=== PATIENT | female | born 1980 | race Caucasian/White ===

== ENCOUNTER 2020-03-14 14:32 | Outpatient (REF) | payer BC, SELFPAY | END 2020-03-14 14:33 | disposition home or self-care (01) | LOC: HO.LNP 14:32 | PROVIDERS: Visit Provider Internal Medicine | DX: Z00.01 Encounter for general adult medical examination with abnormal findings (principal); E78.1 Pure hyperglyceridemia; I10 Essential (primary) hypertension; R73.01 Impaired fasting glucose; E03.9 Hypothyroidism, unspecified | CPT/HCPCS: 88142 ==

== ENCOUNTER 2020-10-03 07:11 | Outpatient (REF) | payer BC, SELFPAY ==
[2020-10-03 09:03] LABS: Estimated Average Glucose 120 mg/dL; Hemoglobin A1c % 5.8 %
[2020-10-03 09:21] LABS: Alanine Aminotransferase 21 U/L (0-31); Anion Gap 13 (12-20); Aspartate Amino Transferase 17 U/L (5-31); Blood Urea Nitrogen 13 mg/dL (9-16); Calcium 9.2 mg/dL (8.4-10.2); Carbon Dioxide 28 mmol/L (22-29); Chloride 103 mmol/L (96-108); Cholesterol 193 mg/dL; Estimated Glomerular Filt Rate > 60; Glucose Fasting 103 mg/dL (60-99); HDL Cholesterol 36 mg/dL; LDL Cholesterol Calculated 114 mg/dl; Potassium 4.5 mmol/L (3.3-5.1); Sodium 139 mmol/L (135-145); Triglycerides 215 mg/dL
[2020-10-03 09:27] LABS: Free T4 (Free Thyroxine) 1.15 ng/dL (0.71-1.85)
== END 2020-10-03 07:12 | disposition home or self-care (01) ==
LOC: HO.LAB 07:11
PROVIDERS: PCP Internal Medicine; Visit Provider Internal Medicine
DX: Z00.01 Encounter for general adult medical examination with abnormal findings (principal); R73.01 Impaired fasting glucose; I10 Essential (primary) hypertension; E78.1 Pure hyperglyceridemia; E03.9 Hypothyroidism, unspecified
CPT/HCPCS: 36415; 80048; 80061; 83036; 84439; 84443; 84450; 84460

== ENCOUNTER 2021-02-09 16:29 | Outpatient (REF) | payer BC, SELFPAY ==
[2021-02-09 17:12] LABS: Influenza A PCR NEGATIVE (Negative); Influenza B PCR NEGATIVE (Negative); Resp Syncy Virus RNA Qual PCR NEGATIVE (Negative); SARS COV2 PCR INHOUSE NEGATIVE (Negative)
== END 2021-02-09 16:30 | disposition home or self-care (01) ==
LOC: HO.LNP 16:29
PROVIDERS: Visit Provider Physician Assistant Medical
DX: Z20.822 Contact with and (suspected) exposure to COVID-19 (principal); J06.9 Acute upper respiratory infection, unspecified
CPT/HCPCS: 0241U

== ENCOUNTER 2021-04-17 10:49 | Outpatient (REF) | payer BC, SELFPAY ==
[2021-04-17 13:05] LABS: Alanine Aminotransferase 26 U/L (0-31); Anion Gap 12 (12-20); Aspartate Amino Transferase 18 U/L (5-31); Blood Urea Nitrogen 11 mg/dL (9-16); Calcium 9.4 mg/dL (8.4-10.2); Carbon Dioxide 26 mmol/L (22-29); Chloride 106 mmol/L (96-108); Cholesterol 191 mg/dL; Estimated Glomerular Filt Rate > 60; Glucose Fasting 99 mg/dL (60-99); HDL Cholesterol 37 mg/dL; LDL Cholesterol Calculated 96 mg/dl; Sodium 140 mmol/L (135-145); Triglycerides 293 mg/dL
[2021-04-17 13:27] LABS: Free T4 (Free Thyroxine) 1.23 ng/dL (0.71-1.85); Thyroid Stimulating Hormone 1.03 uIU/mL (0.32-4.0)
== END 2021-04-17 10:50 | disposition home or self-care (01) ==
LOC: HO.HMGCLDS 10:49
PROVIDERS: PCP Internal Medicine; Visit Provider Internal Medicine
DX: E03.9 Hypothyroidism, unspecified (principal); E66.9 Obesity, unspecified; I10 Essential (primary) hypertension; E78.1 Pure hyperglyceridemia; R73.01 Impaired fasting glucose
CPT/HCPCS: 36415; 80048; 80061; 84439; 84443; 84450; 84460

== ENCOUNTER 2021-04-28 12:17 | Outpatient (REF) | payer BC, SELFPAY ==
--- NOTE | ~2021-04-28 | XR_ITS ---
EXAMINATION: XR CHEST CLINICAL INFORMATION: Cough COMPARISON: None TECHNIQUE: 2 views of the chest were obtained. FINDINGS: No significant abnormality is noted involving the heart, lungs, mediastinum, bony thorax or soft tissues. XR/XR chest 2V IMPRESSION: Unremarkable examination.
[2021-04-28 15:14] LABS: Influenza A PCR NEGATIVE (Negative); Influenza B PCR NEGATIVE (Negative); Resp Syncy Virus RNA Qual PCR POSITIVE (Negative); SARS COV2 PCR INHOUSE NEGATIVE (Negative)
== END 2021-04-28 12:18 | disposition home or self-care (01) ==
LOC: HO.HMGCX 12:17
PROVIDERS: PCP Internal Medicine; Visit Provider Physician Assistant
DX: Z20.822 Contact with and (suspected) exposure to COVID-19 (principal); R05.9 Cough, unspecified; R00.0 Tachycardia, unspecified; B34.9 Viral infection, unspecified
CPT/HCPCS: 0241U; 71046

== ENCOUNTER 2021-10-01 | Outpatient (REF) | payer BC, SELFPAY ==
[2021-10-08 12:46] LABS: HPV mRNA E6/E7 rflx Not Detected (Not Detected)
== END 2021-10-01 00:01 | disposition home or self-care (01) ==
LOC: HO.LNP
PROVIDERS: Visit Provider Internal Medicine
DX: Z01.419 Encounter for gynecological examination (general) (routine) without abnormal findings (principal)
CPT/HCPCS: 87624; 88142

== ENCOUNTER 2021-11-26 14:16 | Outpatient (REF) | payer BC, SELFPAY | END 2021-11-26 14:17 | disposition home or self-care (01) | LOC: HO.LAB 14:16 | PROVIDERS: PCP Internal Medicine; Visit Provider Surgery | DX: L98.9 Disorder of the skin and subcutaneous tissue, unspecified (principal) | CPT/HCPCS: 11401; 88305 ==

== ENCOUNTER 2022-06-12 10:19 | Outpatient (REF) | payer BC, SELFPAY ==
[2022-06-12 11:58] LABS: Anion Gap 15 (12-20); Blood Urea Nitrogen 9 mg/dL (9-16); Calcium 8.7 mg/dL (8.4-10.2); Carbon Dioxide 23 mmol/L (22-29); Chloride 107 mmol/L (96-108); Cholesterol 196 mg/dL; Estimated Glomerular Filt Rate > 60; Glucose Fasting 86 mg/dL (60-99); HDL Cholesterol 39 mg/dL; LDL Cholesterol Calculated 116 mg/dl; Potassium 4.1 mmol/L (3.3-5.1); Sodium 141 mmol/L (135-145); Triglycerides 207 mg/dL
[2022-06-12 12:07] LABS: Free T4 (Free Thyroxine) 1.02 ng/dL (0.71-1.85); Thyroid Stimulating Hormone 2.39 uIU/mL (0.32-4.0)
== END 2022-06-12 10:20 | disposition home or self-care (01) ==
LOC: HO.LAB 10:19
PROVIDERS: PCP Internal Medicine; Visit Provider Internal Medicine
DX: E03.9 Hypothyroidism, unspecified (principal); E66.9 Obesity, unspecified; E78.1 Pure hyperglyceridemia; R73.01 Impaired fasting glucose; I10 Essential (primary) hypertension
CPT/HCPCS: 36415; 80048; 80061; 84439; 84443

== ENCOUNTER 2022-08-21 07:35 | Outpatient (REF) | payer BC, SELFPAY ==
--- NOTE | ~2022-08-21 | MM_ITS ---
EXAMINATION: MM SCREENING DIGITAL BREAST TOMOSYNTHESIS, BILATERAL CLINICAL INFORMATION: Screening. Asymptomatic. Baseline mammography. Age 41. The lifetime risk of breast cancer based on the Tyrer-Cuzick Model is 21%. COMPARISON: None (current study represents initial baseline exam). TECHNIQUE: Digital breast tomosynthesis is performed in both the craniocaudal and mediolateral oblique views along with computer-aided detection (CAD). Synthesized 2D images are generated from the tomosynthesis. Additional left CC view is provided. FINDINGS: There are scattered areas of fibroglandular density (ACR BI-RADS breast composition Category b). Left breast has a benign-appearing smooth oval nodule mid 6:00 position approximately 7 x 3 mm, likely a cyst. Patient will be recalled for targeted ultrasound to fully characterize baseline appearance. The remainder of the left breast and the right breast show no significant mass or architectural abnormality or abnormal calcifications. There is incidental low right axillary tail node on MLO view. The skin contours are smooth. MM/MM tomosynthesis screening BI IMPRESSION: Left: -Smooth oval nodule mid 6:00 position under 1 cm, possibly a cyst. Right: -No mammographic evidence of malignancy. ASSESSMENT: BI-RADS 0: Incomplete - Need Additional Imaging Evaluation RECOMMENDATION: 1. Targeted ultrasound left breast. 2. Radiology department staff will contact the patient for additional imaging. This patient's information was entered into a reminder system with a target due date for their next mammogram.
== END 2022-08-21 07:36 | disposition home or self-care (01) ==
LOC: HO.MAMMO 07:35
PROVIDERS: PCP Internal Medicine; Visit Provider Internal Medicine
DX: Z12.31 Encounter for screening mammogram for malignant neoplasm of breast (principal)
CPT/HCPCS: 77063; 77067

== ENCOUNTER 2022-09-02 15:09 | Outpatient (REF) | payer BC, SELFPAY ==
--- NOTE | ~2022-09-02 | US_ITS ---
EXAMINATION: US DIAGNOSTIC ULTRASOUND BREAST, LEFT CLINICAL INFORMATION: Recall from baseline screening for smooth oval nodule mid 6:00 left breast just under 1 cm. TC score 21%. COMPARISON: Baseline mammography 08/21/2022. TECHNIQUE: Ultrasound left breast is targeted to the inferior breast using grayscale imaging and color Doppler without and with harmonics. FINDINGS: There is a complicated cyst 6:00 position 4 cm from nipple measuring approximately 0.7 x 0.5 cm with several branching avascular internal septations. There is subtle increased through-transmission of sound. No associated color flow. There is no solid mass or architectural abnormality. Results and management recommendations are discussed with the patient at time of visit. US/US breast LT limited IMPRESSION: Probable benign complicated cyst 6:00 position under 1 cm. ASSESSMENT: BI-RADS 3: Probably Benign RECOMMENDATION: -Diagnostic left mammography and targeted ultrasound in 6 months. This patient's information was entered into a reminder system with a target due date for their next mammogram.
== END 2022-09-02 15:10 | disposition home or self-care (01) ==
LOC: HO.MAMMO 15:09
PROVIDERS: PCP Internal Medicine; Visit Provider Internal Medicine
DX: N63.25 Unspecified lump in the left breast, overlapping quadrants (principal)
CPT/HCPCS: 76642

== ENCOUNTER 2023-02-03 09:54 | Outpatient (AMB) | payer BC, SELFPAY ==
--- NOTE | 2023-02-03 09:55 | A.OFFPC_ITS ---
Vital Signs 02/03/23 10:16 Height 5 ft 3 in Weight 216 lb BMI 38.3 BP 122/80 Blood Pressure Location Lt brachial Position Sitting Pulse 82 Pulse Source Pulse Oximeter Pulse Oximetry (%) 98 Oxygen Delivery Method Room Air Intake Visit Reasons: PE/ pap smear Intake Note: patient is here today for PE/pap smear Allergies penicillin V Allergy (Unknown, Verified 02/03/23 10:34) Hives, difficulty breathing hydromorphone [From Dilaudid] Adverse Reaction (Verified 02/03/23 10:34) itchy nose Medication List - Last Reconciled 02/03/23 by Temitope Zaacrias MD levothyroxine 125 mcg PO DAILY lisinopril 10 mg PO DAILY multivitamin 1 tab PO DAILY Tobacco use date assessed: 10/01/21 Dental Screening Dental Screen Date: 02/03/23 Did you have a dental visit in the last 12 months?: No Did you have a dental problem in the last 6 months where you did not have access to dental care?: No Was dental information given to patient?: Yes HPI PE/ pap smear HPI Details 42-year-old lady with hypothyroidism, ob esity and hypertension, here today for physical exam. She is also due for Pap smear. Complains of irregular menstrual cycles, usually skips some month and complains of hot flashes. She has been feeling well, with no complaints at present time. She is up-to-date with her screening mammogram, had some density and left lower breast, due for repeat diagnostic mammogram in February this year. [facility] Medical History (Updated 02/03/23 @ 10:53 by Temitope Zacarias MD) Irregular menstrual cycle Obesity (BMI 30-39.9) Allergic rhinitis Impaired fasting glucose Hypertriglyceridemia Essential hypertension Acquired hypothyroidism Surgical History History of skin graft History of surgery Family History Father Overactive thyroid gland Substance use disorder Mother Hypothyroidism IBS (irritable bowel syndrome) Maternal Grandfather CAD (coronary artery disease) Maternal Grandmother Breast cancer Maternal Aunt Breast cancer H/O Zan thyroiditis Sister No problems noted. Paternal Grandfather Substance use disorder Maternal Aunt Mental health disorder Social History Housing: Apartment Alcohol intake: current Alcohol intake frequency: a few times a month Patient Tobacco Use Status: Former Tobacco user Years Smoked: 3 yrs e-Cigarette/Vaping Use: Never Used service: No Current occupational status: employed Cognitive needs: No Hearing needs: No Vision needs: Yes Female Reproductive History Menstrual Date of last menstrual period: 01/26/23 control method: none Questionnaire PHQ-9 Over the last 2 weeks, how often have you been bothered by any of the following problems? 1. Little interest or pleasure in doing things: not at all 2. Feeling down, depressed, or hopeless: not at all 3. Trouble falling or staying asleep, or sleeping too much: not at all 4. Feeling tired or having little energy: several days 5. Poor appetite or overeating: several days 6. Feeling bad about yourself - or that you are a failure or have let yourself or your family down: several days 7. Trouble concentrating on things, such as reading the newspaper or watching television: not at all 8. Moving or speaking so slowly that other people could have noticed. Or the opposite - being so fidgety or restless that you have been moving around a lot more than usual: not at all 9. Thoughts that you would be better off or of hurting yourself in some way: not at all Total score: 3 Depression Screening Interpretation: Negative Depression Screening Done: Yes 96511 - PHQ-9 Billing: Yes Source: Developed by Drs. Scott Gee, Yanni Robles, Raphael Buckner and colleagues, with an educational emerson from [employer]. Thrive Questionnaire Date Thrive assessed: 02/03/23 I am a: Patient What is your living situation today?: I have a steady place to live Within the past 12 months, did the food you bought not last and you didn't have the money to get more?: Never true Within the past 12 months, did you worry whether your food would run out before you got money to buy more?: Never true Do you have trouble paying for medicines?: No Do you have trouble getting transportation to medical appointments?: No Do you have trouble paying your heating and electricity bill?: No Do you have trouble taking care of your child, family member or friend?: No Do you have trouble with day-to-day activities such as bathing, preparing meals, shopping, managing finances, etc.?: No Are you currently unemployed and looking for a job?: No Are you interested in more education?: No AUDIT C Alcohol Use Questionnaire (AUDIT-C) 1. How often do you have a drink containing alcohol?: Monthly or less 2. How many drinks containing alcohol do you have on a typical day when you are drinking?: 1 or 2 Total Score: 1 EV-7 AMB Questionnaire EV-7 Date EV - 7 assessed: 02/03/23 Feeling nervous, anxious, or on edge: 0 = Not at all Not being able to stop or control worryin = Not at all Worrying too much about different things: 0 = Not at all Trouble relaxin = Not at all Being so restless that it is hard to sit still: 0 = Not at all Becoming easily annoyed or irritable: 1 = Several days Feeling afraid as if something awful might happen: 0 = Not at all Total EV-7 score (0-4 normal; 5-9 mild; 10-14 moderate; 15-21 severe): 1 Source: Developed by Drs. Scott Gee, Yanni Robles, Raphael Buckner and colleagues, with an educational emerson from [employer]. VE-7 Assessment Billing EV-7 Assessment Tool: EV-7 Assessment 22755 Review of Systems Const Denies body aches, Denies fatigue, Denies fever(s), Denies headache(s) and Denies weakness Eyes Details: Goes to [facility] Denies change in vision, Denies eye discharge and Denies itchy eyes ENT Denies dizziness, Denies headache(s), Denies nasal congestion, Denies nasal discharge and Denies sore throat Card Denies chest pain, Denies lightheadedness, Denies palpitations and Denies dyspnea Resp Denies chest congestion, Denies cough, Denies dyspnea and Denies wheezing GI Denies abdominal pain, Denies change in bowel habits and Denies heartburn Denies hematuria, Denies urinary frequency, Denies dysuria and Denies urinary urgency Musc Reports no additional complaints Skin/Breast Reports as per HPI, Denies breast pain, Denies breast mass and Denies rash Neuro Denies dizziness, Denies headache(s) and Denies weakness Psych Reports as per HPI Endo Denies fatigue, Denies polydipsia, Denies polyuria and Denies palpitations Efe/Lymph Denies easy bruising Aller/Immun Denies itchy eyes, Denies seasonal rhinorrhea and Denies wheezing Physical exam (Primary Care) Vital Signs: Last Vital Signs Pulse 82 02/03/23 10:16 BP 122/80 02/03/23 10:16 Pulse Ox 98 02/03/23 10:16 Oxygen Delivery Method Room Air 02/03/23 10:16 BMI result Body Mass Index 38.3 Tobacco/Smoking Status: Tobacco use Status Tobacco use date assessed 10/01/21 02/03/23 09:56 Patient Tobacco Use Status Former Tobacco user 02/03/23 09:56 e-Cigarette/Vaping Use Never Used 02/03/23 09:56 PHQ-9: PHQ-9 Score PHQ-9: Total score 3 02/03/23 10:21 Depression Screening Interpretation: Negative Thrive Assessment: Date of Thrive Assessment Date Thrive assessed 02/03/23 02/03/23 10:21 Const General: comfortable, no acute distress and alert Nutritional Appearance: obese Orientation/consciousness: patient oriented x3 HENMT Ears: external ears normal, TM's normal bilaterally and EAC's normal General nose exam: Normal external nose present and No nasal discharge present Face and sinus: Yes face symmetric Mouth: Normal oral and palatal mucosa present, oropharynx normal and moist mucous membranes Eyes General: appearance normal, both eyes and all related structures Conjunctivae: conjunctivae normal Sclerae: sclerae normal Pupils: Equal, round and reactive pupils present EOM: EOMs intact bilaterally Neck Neck: Yes full ROM, Yes no lymphadenopathy and Yes supple Chest Chest palpation & inspection: normal inspection of the chest Breast/axilla inspection: normal inspection of the breasts Breast/axilla palpation: normal palpation of the breasts Resp Effort & Inspection: normal respiratory effort and able to speak in complete sentences Auscultation: clear to auscultation bilaterally Cardio Rate: regular rate Rhythm: regular rhythm Heart sounds: S1 normal heart sound present and S2 normal heart sound present GI Palpation (GI): Soft to palpation, nontender and no masses Auscultation: normal bowel sounds Other: Patient declined exam, would like referral to pbx manager Back/Spine/Pelvis Back: No back tenderness Skin General skin exam: no rashes or lesions noted Neuro General: patient oriented x3, gait normal, tone normal, moves all extremities, Normal light touch and pain sensation and no focal motor deficits Cranial nerves: Yes CN's II-XII intact bilaterally and Yes Equal, round and reactive pupils present Cognition (Neuro): normal cognition Extrem General: Yes full ROM, Yes no joint enlargement, Yes no clubbing, cyanosis or edema and Yes no calf tenderness Psych Appearance: grossly normal and well kempt Mental Status: mental status grossly normal Speech and movement: Normal speech and movement present Affect: normal affect Attitude: cooperative Thought process: Normal thought process present Thought content: Normal thought content present Assessment and Plan Assessment & Plan (1) Annual visit for general adult medical examination with abnormal findings: Code(s): Z00.01 - Encounter for general adult medical examination with abnormal findings Plan: Will check appropriate labs. Recommended dental visit every 6 months and regular eye exams, at least every 2 years, was seen at [facility]. Take adequate calcium in diet and vitamin-D 3 at 2000 IU per cap once a day, in addition to weight-bearing exercises to help maintain good muscle tone and weight control. Instructed to do self-breast exam, and he has appointment for repeat stick mammogram scheduled next month. Referred to [facility] for her routine Pap and pelvic exam. Advised to get her COVID booster, flu vaccine given today, up-to-date with her Tdap. (2) Acquired hypothyroidism: Code(s): E03.9 - Hypothyroidism, unspecified Plan: Ordered TSH and free T4 levels, continue levothyroxine 125 mcg once a day (3) Essential hypertension: Code(s): I10 - Essential (primary) hypertension Plan: Blood pressure at goal of less than 130/80. Continue with lisinopril 2 g daily Reinforced importance of following a low sodium diet, getting regular exercise, and lowering stress levels. (4) Irregular menstrual cycle: Code(s): N92.6 - Irregular menstruation, unspecified Plan: Referred to [facility] TSH and free T4 were (5) Cervical cancer screening: Code(s): Z12.4 - Encounter for screening for malignant neoplasm of cervix Plan: Referred to [facility] for her routine Pap and pelvic exam, (6) Obesity (BMI 30-39.9): Code(s): E66.9 - Obesity, unspecified Plan: Recommended focusing on improving your health instead of dieting. : Eat Mediterranean diet, limit foods high in fat, sugar, and calories, eat slowly, pay attention to portion sizes, plan your meals ahead of time, start regular physical activity 150 minutes of moderate intensity exercise or 90 minutes/week of vigorous exercise and increase water intake. (7) Impaired fasting glucose: Code(s): R73.01 - Impaired fasting glucose Plan: Fasting glucose ordered Orders: Orders Thyroid Stimulating Hormone Today E03.9 - Hypothyroidism, unspecified, E66.9 - Obesity, unspecified, I10 - Essential (primary) hypertension, R73.01 - Impaired fasting glucose Free T4 (Free Thyroxine) Today E03.9 - Hypothyroidism, unspecified, E66.9 - Obesity, unspecified, I10 - Essential (primary) hypertension, R73.01 - Impaired fasting glucose Lipid Panel Today E03.9 - Hypothyroidism, unspecified, E66.9 - Obesity, unspecified, I10 - Essential (primary) hypertension, R73.01 - Impaired fasting glucose Basic Metabolic Panel Fasting Today E03.9 - Hypothyroidism, unspecified, E66.9 - Obesity, unspecified, I10 - Essential (primary) hypertension, R73.01 - Impaired fasting glucose Hemoglobin and Hematocrit Today E03.9 - Hypothyroidism, unspecified, E66.9 - Obesity, unspecified, I10 - Essential (primary) hypertension, R73.01 - Impaired fasting glucose Influenza [id number] Immunization Today Z23 - Encounter for immunization Vitamin D 25-OH Total Today E03.9 - Hypothyroidism, unspecified, E66.9 - Obesity, unspecified, I10 - Essential (primary) hypertension, R73.01 - Impaired fasting glucose Alanine Aminotransferase Today E03.9 - Hypothyroidism, unspecified, E66.9 - Obesity, unspecified, I10 - Essential (primary) hypertension, R73.01 - Impaired fasting glucose Aspartate Amino Transferase Today E03.9 - Hypothyroidism, unspecified, E66.9 - Obesity, unspecified, I10 - Essential (primary) hypertension, R73.01 - Impaired fasting glucose Referrals FLIGHT MANAGER Referral N92.6 - Irregular menstruation, unspecified, Z00.01 - Encounter for general adult medical examination with abnormal findings, Z12.4 - Encounter for screening for malignant neoplasm of cervix Medications: New flu vacc [id number] 6mos up(PF) 0.5 mL IM ONCE 0.5 mL 0RF Z23 - Encounter for immunization Coding Level of Care Code Est Pt Prev Care 40-64y(06706) Diagnoses Annual visit for general adult medical examination with abnormal findings Z00.01 Acquired hypothyroidism E03.9 Essential hypertension I10 Irregular menstrual cycle N92.6 Cervical cancer screening Z12.4 Obesity (BMI 30-39.9) E66.9 Impaired fasting glucose R73.01 Additional Codes EV-7 Assessment Billing - EV-7 Assessment Tool: EV-7 Assessment 28095 ([id number])
[2023-02-03 10:16] VITALS: BP 122/80; PULSE 82; O2SAT 98; BMI 38.3
== END 2023-02-03 12:18 | disposition home or self-care (01) ==
PROVIDERS: PCP Internal Medicine; Visit Provider Internal Medicine
DX: Z00.00 Encounter for general adult medical examination without abnormal findings (principal); E03.9 Hypothyroidism, unspecified; I10 Essential (primary) hypertension; N92.6 Irregular menstruation, unspecified; E66.9 Obesity, unspecified; R73.01 Impaired fasting glucose; Z23 Encounter for immunization
CPT/HCPCS: 90471; 90686; 99396

== ENCOUNTER 2023-03-23 14:58 | Outpatient (REF) | payer BC, SELFPAY ==
--- NOTE | ~2023-03-23 | US_ITS ---
EXAMINATION: MM DIAGNOSTIC DIGITAL BREAST TOMOSYNTHESIS, LEFT US BREAST LIMITED, LEFT MAMMOGRAPHY: CLINICAL INFORMATION: Follow-up small 6 mm density left breast 6:00 axis, which on the ultrasound of 09/02/2022 appeared to represent a mildly complicated cyst. COMPARISON: Mammography: 08/21/2022. TECHNIQUE: Digital breast tomosynthesis of the left breast is performed in both the craniocaudal and mediolateral oblique views along with computer-aided detection (CAD). Synthesized 2D images are generated from the tomosynthesis. FINDINGS: There are scattered areas of fibroglandular density (ACR BI-RADS breast composition Category b). There are no suspicious masses, suspicious grouped calcifications, or areas of architectural distortion in either breast. The small linear 5 mm density in the 6:00 axis is not well identified on the MLO projection, however does appear on the CC projection but appears significantly decreased in with at 2 mm. The parenchymal pattern is otherwise stable from prior exams. ULTRASOUND: CLINICAL INFORMATION: Follow-up complicated cyst at the 6:00 axis, 4 cm from the nipple. COMPARISON: 09/02/2022 left breast ultrasound. TECHNIQUE: Targeted sonographic evaluation was performed using a high frequency linear transducer. Attention was given to the 6:00 axis, 4 cm from the nipple. Selected archived documentation. FINDINGS: LEFT BREAST: There is a mixture of fatty and fibroglandular tissue. No suspicious mass is seen. There is no pathologic acoustic shadowing. The previously seen complicated cyst appears to have near completely resolved, with only a small sliver of cyst remaining, benign. No further ultrasound follow-up recommended. US/US breast LT limited mamm only IMPRESSION: There are no findings suspicious for malignancy in either breast. Previously seen complicated cyst at the 6:00 axis, 4 cm from the nipple, appears to have near completely involuted. This is benign. No further ultrasound follow-up recommended. Density at the 6:00 axis in the left CC projection probably benign, and will be followed in 6 months when the patient is due for bilateral screening. OVERALL ASSESSMENT: Mammography: BI-RADS 3 - Probably benign finding(s) - 6 month follow-up suggested Ultrasound: BI-RADS 3 - Probably benign finding(s) - 6 month follow-up suggested RECOMMENDATION: 6 Month F/U Results were provided to the patient at time of visit by the technologist. This patient's information was entered into a reminder system with a target due date for their next mammogram.
== END 2023-03-23 14:59 | disposition home or self-care (01) ==
LOC: HO.MAMMO 14:58
PROVIDERS: PCP Internal Medicine; Visit Provider Internal Medicine
DX: R92.2 Inconclusive mammogram (principal)
CPT/HCPCS: 76642; 77061; 77065

== ENCOUNTER → 2023-03-23 15:00 | Outpatient (BNV) | payer BC, SELFPAY | PROVIDERS: PCP Internal Medicine; Visit Provider Radiology Diagnostic Radiology | DX: N60.02 Solitary cyst of left breast (principal); R92.322 Mammographic fibroglandular density, left breast | CPT/HCPCS: 76642; 77061; 77065 ==

== ENCOUNTER 2023-04-11 12:07 | Outpatient (AMB) | payer BC, SELFPAY ==
--- NOTE | 2023-04-11 14:00 | MHC.OFFWIV ---
Intake Vital Signs 04/11/23 14:06 Height 5 ft 3 in Weight 220 lb 8 oz BMI 39.1 BP 132/80 Blood Pressure Location Rt brachial Position Sitting Pulse 112 H Pulse Source Pulse Oximeter Temp 97.8 F Temp Source Temporal Artery Scan Pulse Oximetry (%) 97 Intake Visit Reasons: EP, sore throat, congestion ([phone]) Patient Tobacco Use Status: Former Tobacco user Allergies penicillin V Allergy (Unknown, Verified 04/11/23 14:00) Hives, difficulty breathing Penicillins Allergy (Unknown, Verified 04/11/23 14:00) HIVES hydromorphone [From Dilaudid] Adverse Reaction (Verified 04/11/23 14:00) itchy nose From Dilaudid Allergy (Unknown, Uncoded 02/17/23 14:26) UNKNOWN Do you need a note to return to daycare/school/sports/work: Yes HPI HPI Comments History of Present Illness Details Carlie presents to the walk-in clinic today for sick visit. Complaining of cough, sore throat, nasal congestion. Had fever yesterday, but has been taking motrin so no fever today. Reports several people at work have been sick with covid, she has been taking precautions and wearing masks. Denies nausea, vomiting, diarrhea, chest pain, shortness of breath. [facility] Medical History (Updated 04/11/23 @ 14:46 by Rajwinder Sims APRN, [facility]) Irregular menstrual cycle Obesity (BMI 30-39.9) Allergic rhinitis Impaired fasting glucose Hypertriglyceridemia Essential hypertension Acquired hypothyroidism Surgical History (Updated 02/17/23 @ 14:26 by Sandra Lazar) History of skin graft History of surgery Family History (System 02/17/23 @ 14:26 by Sandra Lazar) Father Overactive thyroid gland Substance use disorder Mother Hypothyroidism IBS (irritable bowel syndrome) Maternal Grandfather CAD (coronary artery disease) Maternal Grandmother Breast cancer Maternal Aunt Breast cancer H/O Zan thyroiditis Sister No problems noted. Paternal Grandfather Substance use disorder Maternal Aunt Mental health disorder Social History (System 02/17/23 @ 14:26 by Sandra Lazar) Housing: Apartment Alcohol intake: current Alcohol intake frequency: a few times a month Patient Tobacco Use Status: Former Tobacco user Years Smoked: 3 yrs e-Cigarette/Vaping Use: Never Used service: No Current occupational status: employed Cognitive needs: No Hearing needs: No Vision needs: Yes Review of Systems Const All systems reviewed & are unremarkable except as noted in HPI and below Physical Exam Vital Signs: Last Vital Signs Temp 97.8 F 04/11/23 14:06 Pulse 112 H 04/11/23 14:06 BP 132/80 04/11/23 14:06 Pulse Ox 97 04/11/23 14:06 BMI result Body Mass Index 39.1 General: awake, alert, oriented. Answers questions appropriately. Fully engaged in examination. Skin: warm, dry, intact HEENT: TMs intact bilaterally, no redness. Posterior pharynx without erythema or exudate. Sclera without icterus or injection. oral mucosa moist. Cardiac: External chest normal in appearance. Respiratory: + dry cough. LSCTAB. Abdomen: without gross distension. Neurological: Oriented to person, place, time and situation. Thought process intact. Psychiatric: Appropriate mood and affect. Good judgment and insight. Assessment & Plan Assessment & Plan (1) URI (upper respiratory infection): Code(s): J06.9 - Acute upper respiratory infection, unspecified Plan URI, no abx warranted. SARS-CoV2/FLU/RSV swab collected, results pending. Patient aware she will be called with results. Benzonatate 100mg po bid as needed Rest, drink plenty of fluids, tylenol or motrin as needed. Recommend taking OTC nasal decongestants or flonase. Work note provided. Follow up with pcp or in clinic for any new or worsening symptoms. Go to ER for shortness of breath, chest pain, palpitations, weakness, dizziness. Orders: Orders SARS-CoV2/FLU/RSV Today J06.9 - Acute upper respiratory infection, unspecified Medications: New benzonatate 100 mg PO BID PRN 20 caps 0RF cough Coding Level of Care Code Est Pt Level 3 (90086) Diagnoses URI (upper respiratory infection) J06.9
[2023-04-11 14:06] VITALS: BP 132/80; PULSE 112; TEMP 36.6; O2SAT 97; BMI 39.1
== END 2023-04-11 15:10 | disposition home or self-care (01) ==
PROVIDERS: PCP Internal Medicine; Visit Provider Registered Nurse Emergency
DX: J06.9 Acute upper respiratory infection, unspecified (principal)
CPT/HCPCS: 99213

== ENCOUNTER 2023-04-11 14:39 | Outpatient (REF) | payer BC, SELFPAY ==
[2023-04-11 17:42] LABS: Influenza A PCR NEGATIVE (Negative); Influenza B PCR NEGATIVE (Negative); Resp Syncy Virus RNA Qual PCR NEGATIVE (Negative); SARS COV2 PCR INHOUSE NEGATIVE (Negative)
== END 2023-04-11 14:40 | disposition home or self-care (01) ==
LOC: HO.LAB 14:39
PROVIDERS: Visit Provider Registered Nurse Emergency
DX: Z11.52 Encounter for screening for COVID-19 (principal); J06.9 Acute upper respiratory infection, unspecified
CPT/HCPCS: 0241U

== ENCOUNTER 2023-04-15 08:35 | Outpatient (AMB) | payer BC, SELFPAY ==
--- NOTE | 2023-04-15 08:45 | MHC.OFFWIV ---
Intake Vital Signs 04/15/23 08:46 Height 5 ft 3 in Weight 221 lb 8 oz BMI 39.2 BP 130/82 Blood Pressure Location Lt brachial Position Sitting Pulse 111 H Pulse Source Pulse Oximeter Temp 98.3 F Temp Source Oral Pulse Oximetry (%) 99 Oxygen Delivery Method Room Air Intake Visit Reasons: EP pink eye [id number] Patient Tobacco Use Status: Former Tobacco user Allergies penicillin V Allergy (Unknown, Verified 04/15/23 08:45) Hives, difficulty breathing Penicillins Allergy (Unknown, Verified 04/15/23 08:45) HIVES hydromorphone [From Dilaudid] Adverse Reaction (Verified 04/15/23 08:45) itchy nose From Dilaudid Allergy (Unknown, Uncoded 02/17/23 14:26) UNKNOWN Do you need a note to return to daycare/school/sports/work: Yes HPI EP pink eye [id number] HPI Details 42-year-old female patient presents today with bilateral eye redness, irritation, and discharge. States this started yesterday morning in the right eye, and overnight last night, spread to the left eye. She has been trying to apply warm compresses and some relating drops to her eyes without relief. Denies any eye pain or photophobia. 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 [facility] Medical History Irregular menstrual cycle Obesity (BMI 30-39.9) Allergic rhinitis Impaired fasting glucose Hypertriglyceridemia Essential hypertension Acquired hypothyroidism Surgical History History of skin graft History of surgery Family History Father Overactive thyroid gland Substance use disorder Mother Hypothyroidism IBS (irritable bowel syndrome) Maternal Grandfather CAD (coronary artery disease) Maternal Grandmother Breast cancer Maternal Aunt Breast cancer H/O Zan thyroiditis Sister No problems noted. Paternal Grandfather Substance use disorder Maternal Aunt Mental health disorder Social History Housing: Apartment Alcohol intake: current Alcohol intake frequency: a few times a month Patient Tobacco Use Status: Former Tobacco user Years Smoked: 3 yrs e-Cigarette/Vaping Use: Never Used service: No Current occupational status: employed Cognitive needs: No Hearing needs: No Vision needs: Yes Physical Exam Vital Signs: Last Vital Signs Temp 98.3 F 04/15/23 08:46 Pulse 111 H 04/15/23 08:46 BP 130/82 04/15/23 08:46 Pulse Ox 99 04/15/23 08:46 Oxygen Delivery Method Room Air 04/15/23 08:46 BMI result Body Mass Index 39.2 Const General: cooperative and no acute distress HEENT Head: Yes normal to inspection Ears: hearing grossly normal bilaterally General nose exam: Normal external nose present Eyes Eyelids: Yes eyelids normal Conjunctivae: conjunctival abnormal bilateral conjunctival injection diffuse and discharge mucoid Pupils: Equal, round and reactive pupils present and Pupil accommodation reflex normal EOM: EOMs intact bilaterally Direct Ophthalmoscopy: normal light reflex and no photophobia Resp Effort & Inspection: normal respiratory effort Skin General skin exam: no rashes or lesions noted Neuro Cranial nerves: Yes Equal, round and reactive pupils present Psych Mental Status: mental status grossly normal Speech and movement: Normal speech and movement present Assessment & Plan Assessment & Plan (1) Conjunctivitis, acute, bilateral: Code(s): H10.33 - Unspecified acute conjunctivitis, bilateral Qualifiers: Acute conjunctivitis type: unspecified Qualified Code(s): H10.33 - Unspecified acute conjunctivitis, bilateral Plan: Erythromycin ointment prescribed and we reviewed use of this. She can continue to apply warm compresses. Reviewed good hand hygiene and work note provided for today. All questions were answered. If she does not improve with treatment, or if any symptoms worsen/new symptoms develop, she should return to the clinic for further evaluation. She verbalizes understanding and agrees to plan. Medications: New erythromycin Apply 0.5 inch to lower lid of both eyes 4 times daily for 5 days 1 appl ophthalmic (eye) QID 5 days 3.5 grams 1RF H10.9 - Unspecified conjunctivitis Coding Level of Care Code Est Pt Level 3 (69793) Diagnoses Acute conjunctivitis of both eyes, unspecified acute conjunctivitis type H10.33 Acute conjunctivitis type: unspecified
[2023-04-15 08:46] VITALS: BP 130/82; PULSE 111; TEMP 36.8; O2SAT 99; BMI 39.2
== END 2023-04-15 09:08 | disposition home or self-care (01) ==
PROVIDERS: PCP Internal Medicine; Visit Provider Nurse Practitioner Family
DX: H10.33 Unspecified acute conjunctivitis, bilateral (principal)
CPT/HCPCS: 99213

== ENCOUNTER 2023-07-25 13:02 | Outpatient (AMB) | payer BC, SELFPAY ==
[2023-07-25 13:05] VITALS: BP 140/94; BMI 38.8
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
== END 2023-07-25 14:08 | disposition home or self-care (01) ==
PROVIDERS: PCP Internal Medicine; Visit Provider Advanced Practice Midwife
DX: Z01.419 Encounter for gynecological examination (general) (routine) without abnormal findings (principal); N92.6 Irregular menstruation, unspecified; Z87.42 Personal history of other diseases of the female genital tract; L68.0 Hirsutism; E03.9 Hypothyroidism, unspecified; I10 Essential (primary) hypertension; R73.01 Impaired fasting glucose
CPT/HCPCS: 99386

== ENCOUNTER 2023-07-25 13:02 | Outpatient (REF) | payer BC, SELFPAY ==
[2023-07-25 18:42] LABS: CT PCR NOT DETECTED (Not Detect.); NG PCR NOT DETECTED (Not Detect.)
[2023-07-26 11:23] LABS: BV Int Neg Control Negative (Negative); BV Int Pos Control Positive (Positive)
[2023-07-29 22:14] LABS: HPV mRNA E6/E7 rflx Not Detected (Not Detected)
== END 2023-07-25 13:03 | disposition home or self-care (01) ==
LOC: HO.LNP 13:02
PROVIDERS: PCP Internal Medicine; Visit Provider Advanced Practice Midwife
DX: Z12.4 Encounter for screening for malignant neoplasm of cervix (principal); Z11.51 Encounter for screening for human papillomavirus (HPV); N92.6 Irregular menstruation, unspecified; Z20.2 Contact with and (suspected) exposure to infections with a predominantly sexual mode of transmission
CPT/HCPCS: 0353U; 87480; 87510; 87624; 87660; 88142

== ENCOUNTER 2023-07-29 12:55 | Outpatient (REF) | payer BC, SELFPAY ==
--- NOTE | ~2023-07-29 | US_ITS ---
EXAMINATION: US PELVIS CLINICAL INFORMATION: Irregular menses. COMPARISON: Pelvic ultrasound 02/26/2010. TECHNIQUE: Ultrasound of the pelvis is performed using both transabdominal and transvaginal transducers along with Doppler. Transvaginal imaging is performed due to inadequate visualization transabdominally. FINDINGS: Uterus: The uterus is anteverted and measures 8.9 x 3.7 x 5.6 cm. The double wall endometrial thickness is 12 mm. Nabothian cysts are present in the cervix. The uterus is smooth in contour and has normal myometrial echogenicity. No visible fibroid. Adnexa: Both ovaries are visualized. There is normal color flow to the adnexa. There is no ovarian torsion. There is no pelvic ascites or fluid collection. Right ovary measures 3.8 x 2.2 x 3.0 cm for a volume of 13.1 mL which includes a benign 2.1 cm cyst. Left ovary measures 2.8 x 2.9 x 2.8 cm for a volume of 11.9 mL and appears normal. US/US pelvic and transvaginal IMPRESSION: Unremarkable pelvic ultrasound.
== END 2023-07-29 12:56 | disposition home or self-care (01) ==
LOC: HO.US 12:55
PROVIDERS: PCP Internal Medicine; Visit Provider Advanced Practice Midwife
DX: N92.6 Irregular menstruation, unspecified (principal); E66.9 Obesity, unspecified; L68.0 Hirsutism; Z87.42 Personal history of other diseases of the female genital tract
CPT/HCPCS: 76830; 76856

== ENCOUNTER 2023-08-12 13:00 | Outpatient (AMB) | payer BC, SELFPAY ==
[2023-08-12 13:10] VITALS: BP 130/80; BMI 38.8
--- NOTE | 2023-08-12 13:10 | MHC.OFFVIS ---
Vital Signs 08/12/23 13:10 Height 5 ft 3 in Weight 219 lb BMI 38.8 BP 130/80 Intake Visit Reasons: Ultrasound follow up/? 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 EMB: Details: Patient is here for ultrasound follow-up she gets monthly periods but occasionally they skip she probably thing she misses maybe 4 periods a year her period is starting today right on time. She does get really bad cramps more like day 2 or 3 and takes Pamprin and has a heating pad that she uses. 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 She will be getting fasting labs for her primary care provider tomorrow. She is working on trying to eat healthier and lose weight. Usually on the weekend she and her are both so exhausted from the be demanding jobs. She says her periods are not really as bad as they used to be and she is kind of gotten used to them. She has a long history of infertility and has not been very sexually active for long time. [facility] Medical History Irregular menstrual cycle Obesity (BMI 30-39.9) Allergic rhinitis Impaired fasting glucose Hypertriglyceridemia Essential hypertension Acquired hypothyroidism Surgical History History of skin graft History of surgery Family History Father Overactive thyroid gland Substance use disorder Mother Hypothyroidism IBS (irritable bowel syndrome) Maternal Grandfather CAD (coronary artery disease) Maternal Grandmother Breast cancer Maternal Aunt Breast cancer H/O Zan thyroiditis Sister No problems noted. Paternal Grandfather Substance use disorder Maternal Aunt Mental health disorder Maternal Aunt Cervical cancer Social History Housing: Apartment Alcohol intake: current Alcohol intake frequency: a few times a month Patient Tobacco Use Status: Former Tobacco user Years Smoked: 3 yrs e-Cigarette/Vaping Use: Never Used service: No Current occupational status: employed Cognitive needs: No Hearing needs: No Vision needs: Yes Female Reproductive History Menstrual Age of Menarche: 12 Date of last menstrual period: 08/12/23 control method: none Physical Exam Vital Signs: Last Vital Signs BP 130/80 08/12/23 13:10 BMI result Body Mass Index 38.8 Results Reviewed Results Reviewed: Patient: Carlie Petersen MR#: [id number] : 1980 Acct:[id number] Age/Sex: 42 / F ADM Date: 07/29/23 Loc: HO.US Attending Dr: Lynn Hitchcock CNM Ordering Physician: Lynn Hitchcock CNM Date of Service: 07/29/23 Procedure(s): US pelvic and transvaginal Accession Number(s): [id number] cc: Temitope Zacarias MD; Lynn Hitchcock CNM~ EXAMINATION: US PELVIS CLINICAL INFORMATION: Irregular menses. COMPARISON: Pelvic ultrasound 02/26/2010. TECHNIQUE: Ultrasound of the pelvis is performed using both transabdominal and transvaginal transducers along with Doppler. Transvaginal imaging is performed due to inadequate visualization transabdominally. FINDINGS: Uterus: The uterus is anteverted and measures 8.9 x 3.7 x 5.6 cm. The double wall endometrial thickness is 12 mm. Nabothian cysts are present in the cervix. The uterus is smooth in contour and has normal myometrial echogenicity. No visible fibroid. Adnexa: Both ovaries are visualized. There is normal color flow to the adnexa. There is no ovarian torsion. There is no pelvic ascites or fluid collection. Right ovary measures 3.8 x 2.2 x 3.0 cm for a volume of 13.1 mL which includes a benign 2.1 cm cyst. Left ovary measures 2.8 x 2.9 x 2.8 cm for a volume of 11.9 mL and appears normal. US/US pelvic and transvaginal IMPRESSION: Unremarkable pelvic ultrasound. Dictated By: Sami Ramos MD Signed By: <Electronically signed by Sami Ramos MD in OV> 08/03/23 0015 DD/ 1333 TD/TT: Sdc Teacher: SS olesya: Carlie Petersen Age/Sex: 42/F Attending: Lynn Hitchcock CNM : 1980 Submitted by: Lynn Hitchcock CNM Copies to: Temitope Zacarias MD MR #: [id number] Status: DEP REF Collected: 07/25/23 Location: .LN Received: 07/26/23 Interpretation Satisfactory for evaluation. Negative for intraepithelial lesion or malignancy. HPV mRNA E6/E7: NOT DETECTED This assay detects E6/E7 viral messenger RNA (mRNA) from 14 high-risk HPV types (16, 18, 31, 33, 35, 39, 45, 51, 52, 56, 58, 59, 66, 68) HPV testing performed by [facility], [place], [place]. See reference laboratory portion of the EMR for entire report. Clinical Information LMP: 06/27/2023 Previous PAP test: 10/05/2021, WNL Material Received ThinPrep-Cervical Copies To Temitope Zacarias MD [facility] [place] [address] Lynn Hitchcock CNM [address] [place] [address] [place] [address] Electronically Signed By: PAT Molina ([facility]) 08/12/23 0923 The Pap Test is a screening procedure with the inherent possibility of both false negative and false positive results. Results should be interpreted in the context of historic and current clinical findings. Reliability of the Pap Test is enhanced by performing the test on a regular repetitive basis. Patient: Carlie Petersen Age/Sex: 42/F MR#: [id number] Page 1 of 1 Assessment & Plan Assessment & Plan (1) Cervical cancer screening: Comment: 07/25/2023 Pap is negative negative HPV. Code(s): Z12.4 - Encounter for screening for malignant neoplasm of cervix Category: Medical (2) Irregular menstrual cycle: Code(s): N92.6 - Irregular menstruation, unspecified Category: Medical (3) Obesity (BMI 30-39.9): Code(s): E66.9 - Obesity, unspecified Category: Medical (4) Hx of infertility: Code(s): Z87.42 - Personal history of other diseases of the female genital tract Category: Medical Plan Reviewed her very normal ultrasound which is very reassuring. Reviewed her periods with her. At this point given that her periods are more or less regular and there is no other finding that is worrisome probably no intervention is necessary if she ever did miss 3 periods in a row that would warrant an intervention and an endometrial biopsy and a plan for management from there which might eventually we including Mirena IUD. She is aware of it and we did discuss the side effects with for now, no intervention is necessary.
== END 2023-08-12 14:05 | disposition home or self-care (01) ==
LOC: HO.HWSM 13:00
PROVIDERS: PCP Internal Medicine; Visit Provider Advanced Practice Midwife
DX: Z12.4 Encounter for screening for malignant neoplasm of cervix (principal); N92.6 Irregular menstruation, unspecified; E66.9 Obesity, unspecified; Z87.42 Personal history of other diseases of the female genital tract
CPT/HCPCS: 99213

== ENCOUNTER → 2023-08-12 13:00 | Outpatient (BNVA) | payer BC, SELFPAY | PROVIDERS: PCP Internal Medicine; Visit Provider Advanced Practice Midwife ==

== ENCOUNTER 2023-08-13 08:19 | Outpatient (REF) | payer BC, SELFPAY ==
[2023-08-13 10:05] LABS: Hemoglobin 13.1 g/dl (12.0-16.0)
[2023-08-13 11:07] LABS: Alanine Aminotransferase 22 U/L (0-31); Anion Gap 12 (12-20); Aspartate Amino Transferase 16 U/L (5-31); Blood Urea Nitrogen 8 mg/dL (9-16); Calcium 8.7 mg/dL (8.4-10.2); Carbon Dioxide 26 mmol/L (22-29); Chloride 106 mmol/L (96-108); Cholesterol 179 mg/dL (<200); Estimated Glomerular Filt Rate > 60; Glucose Fasting 109 mg/dL (60-99); HDL Cholesterol 36 mg/dL (>40); LDL Cholesterol Calculated 112 mg/dL (<100); Potassium 3.9 mmol/L (3.3-5.1); Sodium 140 mmol/L (135-145); Triglycerides 159 mg/dL (<150)
[2023-08-13 11:32] LABS: Free T4 (Free Thyroxine) 1.14 ng/dL (0.71-1.85); Thyroid Stimulating Hormone 2.67 uIU/mL (0.32-4.0); Vitamin D 25-OH Total 17.5 ng/mL (>30)
== END 2023-08-13 08:20 | disposition home or self-care (01) ==
LOC: HO.LAB 08:19
PROVIDERS: PCP Internal Medicine; Visit Provider Internal Medicine
DX: I10 Essential (primary) hypertension (principal); E03.9 Hypothyroidism, unspecified; E66.9 Obesity, unspecified; R73.01 Impaired fasting glucose; Z68.30 Body mass index [BMI] 30.0-30.9, adult
CPT/HCPCS: 36415; 80048; 80061; 82306; 84439; 84443; 84450; 84460; 85014; 85018

== ENCOUNTER 2023-10-12 12:45 | Outpatient (REF) | payer BC, SELFPAY ==
--- NOTE | ~2023-10-12 | MM_ITS ---
EXAMINATION: MM DIAGNOSTIC DIGITAL BREAST TOMOSYNTHESIS, BILATERAL CLINICAL INFORMATION: 6 month follow-up for 6 mm 6:00 small density which on ultrasound of 09/02/2022 appeared to represent a mildly complicated cyst. On repeat ultrasound 03/23/2023, the cyst disappeared although the small density remained on the mammogram but appeared smaller. Reassess this density. Patient also here for bilateral screening. COMPARISON: MAMMOGRAPHY: 03/23/2023, 08/21/2022. ULTRASOUND: Left 03/23/2023, left 09/02/2022. TECHNIQUE: Digital breast tomosynthesis is performed in both the craniocaudal and mediolateral oblique views along with computer-aided detection (CAD). Synthesized 2D images are generated from the tomosynthesis. FINDINGS: There are scattered areas of fibroglandular density (ACR BI-RADS breast composition Category b). The small 5 x 2 mm density in the 6:00 axis of the left breast is again noted, unchanged, and most consistent with a benign entity. (Previously this measured 6 x 3 mm when measured similarly). No further follow-up recommended. There are no suspicious masses, suspicious grouped calcifications, or areas of architectural distortion in either breast. The parenchymal pattern is stable from prior exams. There is no skin or axillary abnormality. MM/MM tomosynthesis diagnostic BI IMPRESSION: There are no findings suspicious for malignancy. There've been no significant changes in the examination. There are stable benign findings as discussed. Recommend this patient return to routine annual screening mammography. ASSESSMENT: BI-RADS BI-RADS 2 - Benign Findings RECOMMENDATION: 1 year F/U Results were provided to the patient at time of visit by the technologist. This patient's information was entered into a reminder system with a target due date for their next mammogram.
== END 2023-10-12 12:46 | disposition home or self-care (01) ==
LOC: HO.MAMMO 12:45
PROVIDERS: PCP Internal Medicine; Visit Provider Internal Medicine
DX: R92.2 Inconclusive mammogram (principal)
CPT/HCPCS: 77062; 77066

== ENCOUNTER → 2023-10-12 13:00 | Outpatient (BNV) | payer BC, SELFPAY | PROVIDERS: PCP Internal Medicine; Visit Provider Radiology Diagnostic Radiology | DX: N63.25 Unspecified lump in the left breast, overlapping quadrants (principal) | CPT/HCPCS: 77062; 77066 ==

== ENCOUNTER 2023-12-07 15:35 | Outpatient (AMB) | payer BC, SELFPAY ==
--- NOTE | 2023-12-07 15:34 | AM.OFFWIN_ITS ---
Intake Vital Signs 12/07/23 15:41 Height 5 ft 3 in Weight 235 lb BMI 41.6 BP 120/80 Blood Pressure Location Rt brachial Position Sitting Pulse 116 H Pulse Source Pulse Oximeter Pulse Oximetry (%) 98 Oxygen Delivery Method Room Air Intake Visit Reasons: EP- UTI??, burning, pressure Intake Note: Patient here for UTI that has been present for about 3 days. Patient Tobacco Use Status: Former Tobacco user Allergies penicillin V Allergy (Unknown, Verified 12/07/23 15:42) Hives, difficulty breathing Penicillins Allergy (Unknown, Verified 12/07/23 15:42) HIVES hydromorphone [From Dilaudid] Adverse Reaction (Verified 12/07/23 15:42) itchy nose From Dilaudid Allergy (Unknown, Uncoded 12/07/23 15:42) UNKNOWN Do you need a note to return to daycare/school/sports/work: No HPI EP- UTI??, burning, pressure HPI Details This note is constructed using voice recognition software. While every effort has been made to ensure accuracy, business risk consultant errors may have been included. The patient is a 42 year old female who presents to the clinic today with dysuria for the past 3 days. Notes that she has been increasing hydration and started drinking cranberry juice for symptoms. She is having burning with urination, however not having any frequency or urgency. She is sexually active with her , no vaginal discharge or lesions. No new partners [facility] Medical History Irregular menstrual cycle Obesity (BMI 30-39.9) Allergic rhinitis Impaired fasting glucose Hypertriglyceridemia Essential hypertension Acquired hypothyroidism Surgical History History of skin graft History of surgery Family History Father Overactive thyroid gland Substance use disorder Mother Hypothyroidism IBS (irritable bowel syndrome) Maternal Grandfather CAD (coronary artery disease) Maternal Grandmother Breast cancer Maternal Aunt Breast cancer H/O Zan thyroiditis Sister No problems noted. Paternal Grandfather Substance use disorder Maternal Aunt Mental health disorder Maternal Aunt Cervical cancer Social History Housing: Apartment Alcohol intake: current Alcohol intake frequency: a few times a month Patient Tobacco Use Status: Former Tobacco user Years Smoked: 3 yrs e-Cigarette/Vaping Use: Never Used service: No Current occupational status: employed Cognitive needs: No Hearing needs: No Vision needs: Yes Female Reproductive History Menstrual Age of Menarche: 12 Review of Systems Const All systems reviewed & are unremarkable except as noted in HPI and below Physical Exam Vital Signs: Last Vital Signs Pulse 116 H 12/07/23 15:41 BP 120/80 12/07/23 15:41 Pulse Ox 98 12/07/23 15:41 Oxygen Delivery Method Room Air 12/07/23 15:41 BMI result Body Mass Index 41.6 Const General: cooperative, healthy appearing, comfortable, no acute distress and alert Orientation/consciousness: patient oriented x3 Limitations: no limitations Resp Effort & Inspection: normal respiratory effort and able to speak in complete sentences Auscultation: clear to auscultation bilaterally Cardio Jugular venous distension: no JVD Palpation: normal PMI Rate: regular rate Heart sounds: S1 normal heart sound present, S2 normal heart sound present, no click, no gallops, no murmurs and no rubs General: Yes no CVA tenderness Back/Spine/Pelvis Back: no CVA tenderness Skin General skin exam: no rashes or lesions noted, elasticity normal and turgor normal Neuro General: patient oriented x3 Psych Appearance: grossly normal Mental Status: mental status grossly normal Speech and movement: Normal speech and movement present Affect: normal affect Results AMB Urinalysis, Automated UA Leukoctes 0 Erma/uL Last Edit by ROSSY Sawyer on 12/07/23 15:49 UA Nitrite Negative Last Edit by ROSSY Sawyer on 12/07/23 15:49 UA Urobilinogen 0.2 mg/dL Last Edit by ROSSY Sawyer on 12/07/23 15:49 UA Protein 15 mg/dL Last Edit by ROSSY Sawyer on 12/07/23 15:49 UA pH 6 Last Edit by ROSSY Sawyer on 12/07/23 15:49 UA Blood 0 Vladimir/uL Last Edit by ROSSY Sawyer on 12/07/23 15:49 UA Specific Wayne 1.030 Last Edit by ROSSY Sawyer on 12/07/23 15:49 UA Ketone Negative Last Edit by ROSSY Sawyer on 12/07/23 15:49 UA Bilirubin 0 mg/dL Last Edit by ROSSY Sawyer on 12/07/23 15:49 UA Glucose 0 mg/dL Last Edit by ROSSY Sawyer on 12/07/23 15:49 Assessment & Plan Assessment & Plan (1) Dysuria: Code(s): R30.0 - Dysuria Plan: In office urine does not appear to be consistent with urinary tract infection, however has some protein in the urine. Given her symptoms we will treat for that, antibiotics sent to requested pharmacy. Advised patient to follow up with worsening or failure to resolve. Plan See above for full details and plan. Orders: Orders AMB Urinalysis Automated Today Z13.9 - Encounter for screening, unspecified Medications: New nitrofurantoin monohyd/m-cryst 100 mg (Macrobid) must administer with a meal/food 100 mg PO Q12H 3 days 6 caps 0RF Coding Level of Care Code Est Pt Level 3 (50515) Diagnoses Dysuria R30.0
[2023-12-07 15:41] VITALS: BP 120/80; PULSE 116; O2SAT 98; BMI 41.6
== END 2023-12-07 16:13 | disposition home or self-care (01) ==
PROVIDERS: PCP Internal Medicine; Visit Provider Registered Nurse
DX: R30.0 Dysuria (principal)
CPT/HCPCS: 81003; 99213

== ENCOUNTER 2024-02-14 12:28 | Outpatient (AMB) | payer BC, SELFPAY ==
[2024-02-14 12:32] VITALS: BP 124/82; PULSE 119; O2SAT 97; BMI 42.2
--- NOTE | 2024-02-14 12:32 | MHC.PC.OV ---
Vital Signs 02/14/24 12:32 Height 5 ft 3 in Weight 238 lb BMI 42.2 BP 124/82 Blood Pressure Location Lt brachial Position Sitting Pulse 119 H Pulse Source Pulse Oximeter Pulse Oximetry (%) 97 Oxygen Delivery Method Room Air Intake Visit Reasons: Annual PE Intake Note: Pt is here today for her Annual Physical Last pap 07/26/23 Last mamomgram 10/12/23 Allergies penicillin V Allergy (Unknown, Verified 02/15/24 02:02) Hives, difficulty breathing Penicillins Allergy (Unknown, Verified 02/15/24 02:02) HIVES hydromorphone [From Dilaudid] Adverse Reaction (Verified 02/15/24 02:02) itchy nose From Dilaudid Allergy (Unknown, Uncoded 02/15/24 02:02) UNKNOWN Medication List - Last Reconciled 02/15/24 by Temitope Zacarias MD levothyroxine 125 mcg PO DAILY lisinopril 10 mg PO DAILY multivitamin 1 tab PO DAILY Tobacco use date assessed: 02/14/24 Dental Screening Dental Screen Date: 02/14/24 Did you have a dental visit in the last 12 months?: Yes Did you have a dental problem in the last 6 months where you did not have access to dental care?: No Was dental information given to patient?: Patient has dentist HPI Annual PE HPI Details 43-year-old lady with history of acquired hypothyroidism, obesity, hypertension, here today for her physical exam. She states that she gets most of her exercise at work, tries to eat healthy has cut out eating junk food and soda, and has lost weight in the process. She has been taking her medications as directed. Patient however states that she is constantly worrying about her , who is currently unemployed due to multiple medical problems. However states that does not want to do anything and does not sees As instructed , not following doctor's advice with regards to health issues. [facility] Medical History (Updated 02/15/24 @ 03:22 by Temitope Zacarias MD) Sinus tachycardia Vitamin D deficiency Irregular menstrual cycle Obesity (BMI 30-39.9) Allergic rhinitis Impaired fasting glucose Hypertriglyceridemia Essential hypertension Acquired hypothyroidism Surgical History History of skin graft History of surgery Family History Father Overactive thyroid gland Substance use disorder Mother Hypothyroidism IBS (irritable bowel syndrome) Maternal Grandfather CAD (coronary artery disease) Maternal Grandmother Breast cancer Maternal Aunt Breast cancer H/O Zan thyroiditis Sister No problems noted. Paternal Grandfather Substance use disorder Maternal Aunt Mental health disorder Maternal Aunt Cervical cancer Social History Housing: Apartment Alcohol intake: current Alcohol intake frequency: a few times a month Patient Tobacco Use Status: Former Tobacco user Years Smoked: 3 yrs e-Cigarette/Vaping Use: Never Used service: No Current occupational status: employed Cognitive needs: No Hearing needs: No Vision needs: Yes Female Reproductive History Menstrual Age of Menarche: 12 Questionnaire PHQ-9 Over the last 2 weeks, how often have you been bothered by any of the following problems? 1. Little interest or pleasure in doing things: several days 2. Feeling down, depressed, or hopeless: several days 3. Trouble falling or staying asleep, or sleeping too much: several days 4. Feeling tired or having little energy: several days 5. Poor appetite or overeating: not at all 6. Feeling bad about yourself - or that you are a failure or have let yourself or your family down: not at all 7. Trouble concentrating on things, such as reading the newspaper or watching television: not at all 8. Moving or speaking so slowly that other people could have noticed. Or the opposite - being so fidgety or restless that you have been moving around a lot more than usual: not at all 9. Thoughts that you would be better off or of hurting yourself in some way: not at all Total score: 4 Depression Screening Interpretation: Negative Depression Screening Done: Yes 54921 - PHQ-9 Billing: Yes Source: Developed by Drs. Scott Gee, Yanni Robles, Raphael Buckner and colleagues, with an educational emerson from [employer]. Thrive Questionnaire Date Thrive assessed: 02/14/24 I am a: Patient What is your living situation today?: I have a steady place to live Within the past 12 months, did the food you bought not last and you didn't have the money to get more?: Never true Within the past 12 months, did you worry whether your food would run out before you got money to buy more?: Never true Do you have trouble paying for medicines?: No Do you have trouble getting transportation to medical appointments?: No Do you have trouble paying your heating and electricity bill?: No Do you have trouble taking care of your child, family member or friend?: No Do you have trouble with day-to-day activities such as bathing, preparing meals, shopping, managing finances, etc.?: No Are you currently unemployed and looking for a job?: No Are you interested in more education?: No Please select the resources that you would like help with: None Currently or been in a relationship where the following occur: No concerns reported THRIVE Score: 0 AUDIT C Alcohol Use Questionnaire (AUDIT-C) 1. How often do you have a drink containing alcohol?: 2-4 times a month 2. How many drinks containing alcohol do you have on a typical day when you are drinking?: 1 or 2 3. How often do you have six or more drinks on one occasion?: Never Total Score: 2 Score Reviewed/Action Taken: Yes EV-7 AMB Questionnaire EV-7 Date EV - 7 assessed: 02/14/24 Feeling nervous, anxious, or on edge: 1 = Several days Not being able to stop or control worryin = Not at all Worrying too much about different things: 1 = Several days Trouble relaxin = Not at all Being so restless that it is hard to sit still: 0 = Not at all Becoming easily annoyed or irritable: 1 = Several days Feeling afraid as if something awful might happen: 0 = Not at all Total EV-7 score (0-4 normal; 5-9 mild; 10-14 moderate; 15-21 severe): 3 Source: Developed by Drs. Scott Gee, Yanni Robles, Raphael Buckner and colleagues, with an educational emerson from [employer]. EV-7 Assessment Billing EV-7 Assessment Tool: EV-7 Assessment 69536 Review of Systems Const Reports no additional complaints and Reports weight loss Eyes Details: Goes to [facility] [facility] Denies change in vision, Denies eye discharge and Denies itchy eyes ENT Denies dizziness, Denies nasal congestion, Denies nasal discharge and Denies sore throat Card Denies chest pain, Denies lightheadedness, Denies palpitations and Denies dyspnea Resp Denies chest congestion, Denies cough, Denies dyspnea and Denies wheezing GI Denies abdominal pain, Denies change in bowel habits and Denies heartburn Denies hematuria, Denies urinary frequency, Denies dysuria and Denies urinary urgency Musc Reports no additional complaints Skin/Breast Reports as per HPI, Denies breast pain, Denies breast mass and Denies rash Neuro Denies dizziness Psych Reports as per HPI Endo Denies polydipsia, Denies polyuria and Denies palpitations Efe/Lymph Denies easy bruising Aller/Immun Denies itchy eyes, Denies seasonal rhinorrhea and Denies wheezing Physical exam (Primary Care) Vital Signs: Last Vital Signs Pulse 119 H 02/14/24 12:32 BP 124/82 02/14/24 12:32 Pulse Ox 97 02/14/24 12:32 Oxygen Delivery Method Room Air 02/14/24 12:32 BMI result Body Mass Index 42.2 Tobacco/Smoking Status: Tobacco use Status Tobacco use date assessed 02/14/24 02/14/24 12:35 Patient Tobacco Use Status Former Tobacco user 02/14/24 12:35 e-Cigarette/Vaping Use Never Used 02/14/24 12:35 PHQ-9: PHQ-9 Score PHQ-9: Total score 4 02/15/24 02:00 Depression Screening Interpretation: Negative Thrive Assessment: Date of Thrive Assessment Date Thrive assessed 02/14/24 02/14/24 12:35 Currently or been in a relationship where the following occur: No concerns reported Const General: comfortable, no acute distress and alert Nutritional Appearance: obese Orientation/consciousness: patient oriented x3 HENMT Ears: external ears normal, TM's normal bilaterally and EAC's normal General nose exam: Normal external nose present and No nasal discharge present Face and sinus: Yes face symmetric Mouth: Normal oral and palatal mucosa present, oropharynx normal and moist mucous membranes Eyes General: appearance normal, both eyes and all related structures Conjunctivae: conjunctivae normal Sclerae: sclerae normal Pupils: Equal, round and reactive pupils present EOM: EOMs intact bilaterally Neck Neck: Yes full ROM, Yes no lymphadenopathy and Yes supple Chest Chest palpation & inspection: normal inspection of the chest Breast/axilla inspection: normal inspection of the breasts Breast/axilla palpation: normal palpation of the breasts Resp Effort & Inspection: normal respiratory effort and able to speak in complete sentences Auscultation: clear to auscultation bilaterally Cardio Rate: tachycardic Rhythm: regular rhythm Heart sounds: S1 normal heart sound present and S2 normal heart sound present GI Palpation (GI): Soft to palpation, nontender and no masses Auscultation: normal bowel sounds 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 Back/Spine/Pelvis Back: No back tenderness Skin General skin exam: no rashes or lesions noted Neuro General: patient oriented x3, gait normal, tone normal, moves all extremities, Normal light touch and pain sensation and no focal motor deficits Cranial nerves: Yes CN's II-XII intact bilaterally and Yes Equal, round and reactive pupils present Cognition (Neuro): normal cognition Extrem General: Yes full ROM, Yes no joint enlargement, Yes no clubbing, cyanosis or edema and Yes no calf tenderness Psych Appearance: grossly normal and well kempt Mental Status: mental status grossly normal Speech and movement: Normal speech and movement present Affect: normal affect Attitude: cooperative Thought process: Normal thought process present Thought content: Normal thought content present Office Procedures Flu Questionnaire Does the patient have a severe egg allergy?: No Does the patient have severe life threatening allergies?: No Does the patient have a fever or illness today?: No Has the patient ever had Guillain-Roosevelt Syndrome?: No Has the patient ever had any past reaction to a flu shot?: No Immunizations Fluarix Triv [id number] (PF) 45 mcg (15 mcg x 3)/0.5 mL IM syringe Performing Provider: Temitope Zacarias MD Performing Location: [facility] Administered by: Camilla Guerrero CMA on 02/14/24 13:38 Dose Route Admin Location Dispensed Lot Number Expiration Date [facility] Web Master 0.5 mL IM Right Deltoid 0.5 mL [id number] 10/22/24 [id number] [employer] VIS Given Date VIS Provided VIS Publication Date 02/14/24 Single Vaccine 20 Eligibility Eligibility Date Funding Source Not [facility] Eligible 02/14/24 Private Coding Level of Care Code Est Pt Prev Care 40-64y(63190) Diagnoses Annual visit for general adult medical examination with abnormal findings Z00.01 Obesity (BMI 30-39.9) E66.9 Impaired fasting glucose R73.01 Acquired hypothyroidism E03.9 Essential hypertension I10 Vitamin D deficiency E55.9 Sinus tachycardia R00.0 Additional Codes EV-7 Assessment Billing - EV-7 Assessment Tool: EV-7 Assessment 10784 ([id number]) Assessment & Plan Assessment & Plan (1) Annual visit for general adult medical examination with abnormal findings: Code(s): Z00.01 - Encounter for general adult medical examination with abnormal findings Plan: Will check appropriate labs. Recommended dental visit every 6 months and continue with regular eye exams, at least every 2 years. Take adequate calcium in diet and vitamin-D 3 at 2000 IU per cap once a day, in addition to weight-bearing exercises to help maintain good muscle tone and weight control. Instructed to do self-breast exam, and to get yearly mammogram, up-to-date last done 07/2023. Goes to [facility] for her routine Pap and pelvic exam, last done 09/2023 with normal findings flu vaccine given today. Reminded to get her COVID booster, up-to-date with Tdap (2) Obesity (BMI 30-39.9): Code(s): E66.9 - Obesity, unspecified Category: Medical Plan: Continue with regular exercise and weight reduction. Recommended focusing on improving health instead of dieting. Mediterranean diet is a healthy diet that helps, limit food high in fat, sugar, and calories. Eat slowly, pay attention to portion sizes, plan your meals ahead of time, start regular physical activity, at least 150 minutes of moderate intensity exercise, or 90 minutes per week of vigorous exercise. Keeping a food diary, tracking what you eat and your physical activity can help assess what improvements you can make. There are many health problems associated with being overweight/obese, so it is important to improve your diet and exercise. There are medications and surgical options available, but Lifestyle changes are the 1st step. (3) Impaired fasting glucose: Code(s): R73.01 - Impaired fasting glucose Category: Medical Plan: Your previous fasting blood sugars were elevated above 100 mg/dL. Impaired glucose metabolism increases the risk for developing diabetes mellitus type 2, as well as heart attack and stroke later on. Lifestyle changes that promotes weight loss, healthy eating habits, and regular exercise are important, and can prevent the progression to diabetes (4) Acquired hypothyroidism: Code(s): E03.9 - Hypothyroidism, unspecified Category: Medical Plan: Will check TSH and free T4, only on levothyroxine 125 mcg daily (5) Essential hypertension: Code(s): I10 - Essential (primary) hypertension Category: Medical Plan: Blood pressure at goal of less than 130/80. Continue lisinopril 10 mg daily. Reinforced importance of following a low sodium diet, getting regular exercise, and lowering stress levels. (6) Vitamin D deficiency: Code(s): E55.9 - Vitamin D deficiency, unspecified Category: Medical Plan: Will check vitamin-D level (7) Sinus tachycardia: Code(s): R00.0 - Tachycardia, unspecified Category: Medical Plan: EKGs done showed presence of sinus tachycardia, will check TSH and free T4, electrolytes, patient currently asymptomatic, normal hemoglobin hematocrit as of 08/13/2023 Orders: Orders Lipid Panel 02/14/24 E03.9 - Hypothyroidism, unspecified, E55.9 - Vitamin D deficiency, unspecified, E66.9 - Obesity, unspecified, I10 - Essential (primary) hypertension, R73.01 - Impaired fasting glucose, Z00.01 - Encounter for general adult medical examination with abnormal findings Vitamin D 25-OH Total 02/14/24 E03.9 - Hypothyroidism, unspecified, E55.9 - Vitamin D deficiency, unspecified, E66.9 - Obesity, unspecified, I10 - Essential (primary) hypertension, R73.01 - Impaired fasting glucose, Z00.01 - Encounter for general adult medical examination with abnormal findings Hemoglobin A1c 02/14/24 E03.9 - Hypothyroidism, unspecified, E55.9 - Vitamin D deficiency, unspecified, E66.9 - Obesity, unspecified, I10 - Essential (primary) hypertension, R73.01 - Impaired fasting glucose, Z00.01 - Encounter for general adult medical examination with abnormal findings Basic Metabolic Panel Fasting 02/14/24 E03.9 - Hypothyroidism, unspecified, E55.9 - Vitamin D deficiency, unspecified, E66.9 - Obesity, unspecified, I10 - Essential (primary) hypertension, R73.01 - Impaired fasting glucose, Z00.01 - Encounter for general adult medical examination with abnormal findings AMB EKG-In Office 02/14/24 R00.0 - Tachycardia, unspecified Influenza [id number] Immunization 02/14/24 Z23 - Encounter for immunization Thyroid Stimulating Hormone 02/14/24 E03.9 - Hypothyroidism, unspecified, E55.9 - Vitamin D deficiency, unspecified, E66.9 - Obesity, unspecified, I10 - Essential (primary) hypertension, R73.01 - Impaired fasting glucose, Z00.01 - Encounter for general adult medical examination with abnormal findings Free T4 (Free Thyroxine) 02/14/24 E03.9 - Hypothyroidism, unspecified, E55.9 - Vitamin D deficiency, unspecified, E66.9 - Obesity, unspecified, I10 - Essential (primary) hypertension, R73.01 - Impaired fasting glucose, Z00.01 - Encounter for general adult medical examination with abnormal findings Alanine Aminotransferase 02/14/24 E03.9 - Hypothyroidism, unspecified, E55.9 - Vitamin D deficiency, unspecified, E66.9 - Obesity, unspecified, I10 - Essential (primary) hypertension, R73.01 - Impaired fasting glucose, Z00.01 - Encounter for general adult medical examination with abnormal findings Aspartate Amino Transferase 02/14/24 E03.9 - Hypothyroidism, unspecified, E55.9 - Vitamin D deficiency, unspecified, E66.9 - Obesity, unspecified, I10 - Essential (primary) hypertension, R73.01 - Impaired fasting glucose, Z00.01 - Encounter for general adult medical examination with abnormal findings
== END 2024-02-14 13:37 | disposition home or self-care (01) ==
PROVIDERS: PCP Internal Medicine; Visit Provider Internal Medicine
DX: Z00.00 Encounter for general adult medical examination without abnormal findings (principal); E66.9 Obesity, unspecified; Z68.41 Body mass index [BMI] 40.0-44.9, adult; R73.01 Impaired fasting glucose; E03.9 Hypothyroidism, unspecified; I10 Essential (primary) hypertension; E55.9 Vitamin D deficiency, unspecified; R00.0 Tachycardia, unspecified

== ENCOUNTER → 2024-02-14 12:28 | Outpatient (BNVA) | payer BC, SELFPAY | PROVIDERS: PCP Internal Medicine; Visit Provider Internal Medicine | DX: Z00.01 Encounter for general adult medical examination with abnormal findings (principal); E66.9 Obesity, unspecified; Z68.41 Body mass index [BMI] 40.0-44.9, adult; R73.01 Impaired fasting glucose; E03.9 Hypothyroidism, unspecified; I10 Essential (primary) hypertension; E55.9 Vitamin D deficiency, unspecified; R00.0 Tachycardia, unspecified; Z79.899 Other long term (current) drug therapy; Z23 Encounter for immunization | CPT/HCPCS: 90471; 90656; 96127 ==

== ENCOUNTER 2024-03-10 08:32 | Outpatient (REF) | payer BC, SELFPAY ==
[2024-03-10 11:05] LABS: Estimated Average Glucose 146 mg/dL; Hemoglobin A1C 169.7177 umol/L; Hemoglobin A1c % 6.7 % (<6.0)
[2024-03-10 11:30] LABS: Alanine Aminotransferase 27 U/L (0-31); Anion Gap 10 (12-20); Aspartate Amino Transferase 27 U/L (5-31); Blood Urea Nitrogen 9 mg/dL (9-16); Calcium 8.7 mg/dL (8.4-10.2); Carbon Dioxide 27 mmol/L (22-29); Chloride 106 mmol/L (96-108); Cholesterol 183 mg/dL (<200); Estimated Glomerular Filt Rate > 60; Glucose Fasting 113 mg/dL (60-99); HDL Cholesterol 38 mg/dL (>40); LDL Cholesterol Calculated 108 mg/dL (<100); Potassium 3.9 mmol/L (3.3-5.1); Sodium 139 mmol/L (135-145); Triglycerides 188 mg/dL (<150)
[2024-03-10 11:31] LABS: Free T4 (Free Thyroxine) 1.17 ng/dL (0.71-1.85); Thyroid Stimulating Hormone 4.24 uIU/mL (0.32-4.0); Vitamin D 25-OH Total 20.1 ng/mL (>30)
== END 2024-03-10 08:33 | disposition home or self-care (01) ==
LOC: HO.LAB 08:32
PROVIDERS: PCP Internal Medicine; Visit Provider Internal Medicine
DX: Z00.01 Encounter for general adult medical examination with abnormal findings (principal); E66.9 Obesity, unspecified; R73.01 Impaired fasting glucose; E03.9 Hypothyroidism, unspecified; I10 Essential (primary) hypertension; E55.9 Vitamin D deficiency, unspecified
CPT/HCPCS: 36415; 80048; 80061; 82306; 83036; 84439; 84443; 84450; 84460

== ENCOUNTER 2024-08-11 07:04 | Outpatient (REF) | payer BC, SELFPAY ==
[2024-08-11 11:19] LABS: Estimated Average Glucose 157 mg/dL; Hemoglobin A1C 176.5203 umol/L; Hemoglobin A1c % 7.1 % (<6.0); Total Hemoglobin (HGBA1C) 3248.6246 umol/L
[2024-08-11 11:25] LABS: Alanine Aminotransferase 30 U/L (0-31); Anion Gap 13 (12-20); Aspartate Amino Transferase 29 U/L (5-31); Blood Urea Nitrogen 9 mg/dL (9-16); Calcium 8.8 mg/dL (8.4-10.2); Carbon Dioxide 24 mmol/L (22-29); Chloride 106 mmol/L (96-108); Cholesterol 196 mg/dL (<200); Estimated Glomerular Filt Rate > 60; Glucose Fasting 140 mg/dL (60-99); HDL Cholesterol 37 mg/dL (>40); LDL Cholesterol Calculated 121 mg/dL (<100); Potassium 3.9 mmol/L (3.3-5.1); Sodium 139 mmol/L (135-145); Triglycerides 190 mg/dL (<150)
[2024-08-11 11:30] LABS: Free T4 (Free Thyroxine) 1.21 ng/dL (0.71-1.85); Thyroid Stimulating Hormone 4.57 uIU/mL (0.32-4.0)
== END 2024-08-11 07:05 | disposition home or self-care (01) ==
LOC: HO.HMGCLDS 07:04
PROVIDERS: PCP Internal Medicine; Visit Provider Internal Medicine
DX: E66.9 Obesity, unspecified (principal); R73.01 Impaired fasting glucose; I10 Essential (primary) hypertension; E03.9 Hypothyroidism, unspecified
CPT/HCPCS: 36415; 80048; 80061; 83036; 84439; 84443; 84450; 84460

== ENCOUNTER 2024-08-13 11:30 | Outpatient (AMB) | payer BC, SELFPAY ==
[2024-08-13 11:56] VITALS: BP 130/80; PULSE 101; RESP 16; TEMP 37; O2SAT 98; BMI 42.3
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
== END 2024-08-13 12:46 | disposition home or self-care (01) ==
LOC: HO.HMCC 11:30
PROVIDERS: PCP Internal Medicine; Visit Provider Internal Medicine
DX: E11.65 Type 2 diabetes mellitus with hyperglycemia (principal); E78.5 Hyperlipidemia, unspecified; E66.9 Obesity, unspecified; Z68.41 Body mass index [BMI] 40.0-44.9, adult; I10 Essential (primary) hypertension; E03.9 Hypothyroidism, unspecified

== ENCOUNTER → 2024-08-13 11:30 | Outpatient (BNVA) | payer BC, SELFPAY | PROVIDERS: PCP Internal Medicine; Visit Provider Internal Medicine | DX: E11.65 Type 2 diabetes mellitus with hyperglycemia (principal); E78.5 Hyperlipidemia, unspecified; I10 Essential (primary) hypertension; E66.9 Obesity, unspecified; Z68.41 Body mass index [BMI] 40.0-44.9, adult; E03.9 Hypothyroidism, unspecified; Z79.899 Other long term (current) drug therapy | CPT/HCPCS: 96127 ==

== ENCOUNTER → 2024-08-16 14:58 | Outpatient (BNVA) | payer BC, SELFPAY | PROVIDERS: PCP Internal Medicine ==

== ENCOUNTER 2024-10-12 13:16 | Outpatient (REF) | payer BC, SELFPAY ==
--- NOTE | ~2024-10-12 | MM_ITS ---
EXAMINATION: MM SCREENING DIGITAL BREAST TOMOSYNTHESIS, BILATERAL CLINICAL INFORMATION: Screening. Asymptomatic. COMPARISON: Mammography: Comparison is made with available priors TECHNIQUE: Digital breast mammography with tomosynthesis is performed in both the craniocaudal and mediolateral oblique views along with computer-aided detection (CAD). FINDINGS: There are scattered areas of fibroglandular density (ACR BI-RADS breast composition Category b). There are no significant masses, abnormal calcifications, or other abnormalities. MM/MM tomosynthesis screening BI IMPRESSION: No mammographic evidence of malignancy. ASSESSMENT: BI-RADS BI-RADS 1 - Negative RECOMMENDATION: Routine annual mammography screening. 1 year F/U This examination should not preclude the clinical evaluation of a suspicious palpable abnormality. This patient's information was entered into a reminder system with a target due date for their next mammogram. Electronically signed by: Bhumika Méndez DO 10/18/2024 01:47 PM EDT
== END 2024-10-12 13:17 | disposition home or self-care (01) ==
LOC: HO.MAMMO 13:16
PROVIDERS: PCP Internal Medicine; Visit Provider Internal Medicine
DX: Z12.31 Encounter for screening mammogram for malignant neoplasm of breast (principal)
CPT/HCPCS: 77063; 77067

== ENCOUNTER → 2024-10-12 13:30 | Outpatient (BNV) | payer BC, SELFPAY | PROVIDERS: PCP Internal Medicine; Visit Provider Internal Medicine | DX: Z12.31 Encounter for screening mammogram for malignant neoplasm of breast (principal) | CPT/HCPCS: 77063; 77067 ==

== ENCOUNTER 2024-11-21 08:28 | Outpatient (REF) | payer BC, SELFPAY ==
[2024-11-21 09:47] LABS: Alanine Aminotransferase 44 U/L (0-31); Anion Gap 14 (12-20); Aspartate Amino Transferase 33 U/L (5-31); Blood Urea Nitrogen 9 mg/dL (9-16); Calcium 8.8 mg/dL (8.4-10.2); Carbon Dioxide 24 mmol/L (22-29); Chloride 105 mmol/L (96-108); Cholesterol 162 mg/dL (<200); Estimated Glomerular Filt Rate > 60; HDL Cholesterol 36 mg/dL (>40); Potassium 4.0 mmol/L (3.3-5.1); Sodium 139 mmol/L (135-145); Triglycerides 188 mg/dL (<150)
[2024-11-21 10:03] LABS: Free T4 (Free Thyroxine) 1.14 ng/dL (0.71-1.85); Thyroid Stimulating Hormone 4.37 uIU/mL (0.32-4.0)
[2024-11-21 10:06] LABS: Microalbum/Creatinine Ratio Ur 99.3 ug/mg cr (<30)
[2024-11-21 13:05] LABS: Hemoglobin A1C 217.4230 umol/L; Total Hemoglobin (HGBA1C) 4179.1203 umol/L
== END 2024-11-21 08:29 | disposition home or self-care (01) ==
LOC: HO.LAB 08:28
PROVIDERS: PCP Internal Medicine; Visit Provider Internal Medicine
DX: I10 Essential (primary) hypertension (principal); E78.5 Hyperlipidemia, unspecified; E66.9 Obesity, unspecified; E03.9 Hypothyroidism, unspecified
CPT/HCPCS: 36415; 80048; 80061; 82043; 82570; 83036; 84439; 84443; 84450; 84460; 86376

== ENCOUNTER 2024-11-22 13:37 | Outpatient (AMB) | payer BC, SELFPAY ==
[2024-11-22 13:40] VITALS: BP 122/80; PULSE 103; O2SAT 98; BMI 40.9
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
== END 2024-11-22 14:16 | disposition home or self-care (01) ==
LOC: HO.HMCC 13:38
PROVIDERS: PCP Internal Medicine; Visit Provider Internal Medicine
DX: E03.9 Hypothyroidism, unspecified (principal); E66.9 Obesity, unspecified; E11.65 Type 2 diabetes mellitus with hyperglycemia; Z68.41 Body mass index [BMI] 40.0-44.9, adult; I10 Essential (primary) hypertension; E78.5 Hyperlipidemia, unspecified

== ENCOUNTER 2025-03-16 09:48 | Outpatient (REF) | payer BC, SELFPAY ==
[2025-03-16 11:36] LABS: Alanine Aminotransferase 22 U/L (0-31); Anion Gap 11 (12-20); Aspartate Amino Transferase 28 U/L (5-31); Blood Urea Nitrogen 12 mg/dL (9-16); Calcium 8.9 mg/dL (8.4-10.2); Carbon Dioxide 26 mmol/L (22-29); Chloride 106 mmol/L (96-108); Cholesterol 147 mg/dL (<200); Estimated Glomerular Filt Rate > 60; HDL Cholesterol 36 mg/dL (>40); Potassium 3.9 mmol/L (3.3-5.1); Sodium 139 mmol/L (135-145); Triglycerides 175 mg/dL (<150)
[2025-03-16 11:58] LABS: Free T4 (Free Thyroxine) 1.16 ng/dL (0.71-1.85); Thyroid Stimulating Hormone 1.95 uIU/mL (0.32-4.0)
== END 2025-03-16 09:49 | disposition home or self-care (01) ==
LOC: HO.HMGCLDS 09:48
PROVIDERS: PCP Internal Medicine; Visit Provider Internal Medicine
DX: I10 Essential (primary) hypertension (principal); E78.5 Hyperlipidemia, unspecified; E11.65 Type 2 diabetes mellitus with hyperglycemia; E03.9 Hypothyroidism, unspecified; E66.9 Obesity, unspecified
CPT/HCPCS: 36415; 80048; 80061; 83036; 84439; 84443; 84450; 84460

== ENCOUNTER 2025-04-02 15:46 | Outpatient (AMB) | payer BC, SELFPAY ==
[2025-04-02 15:55] VITALS: BP 126/90; PULSE 99; RESP 16; TEMP 36.7; O2SAT 99; BMI 40.4
--- NOTE | 2025-04-02 15:55 | MHC.PC.OV ---
Vital Signs 04/02/25 15:55 Height 5 ft 3 in Weight 228 lb BMI 40.4 BP 126/90 H Blood Pressure Location Lt brachial Position Sitting Respiration 16 Pulse 99 Pulse Source Pulse Oximeter Temp 98.0 F Temp Source Oral Pulse Oximetry (%) 99 Oxygen Delivery Method Room Air Intake Visit Reasons: Annual PE Intake Note: Pt is here today for her PE: Last mammogram 10/12/24, papsmear 07/26/23 Roller Skater Required: No Allergies penicillin V Allergy (Unknown, Verified 04/02/25 16:27) Hives, difficulty breathing Penicillins Allergy (Unknown, Verified 04/02/25 16:27) HIVES hydromorphone (From Dilaudid) Adverse Reaction (Verified 04/02/25 16:27) itchy nose From Dilaudid Allergy (Unknown, Uncoded 04/02/25 16:27) UNKNOWN Medication List - Last Reconciled 04/02/25 by Temitope Zacarias MD blood sugar diagnostic (FreeStyle Lite Strips) Check fasting glucose glucose twice a day before meals blood-glucose meter (FreeStyle [place] Lite kit) Check fasting glucose twice a day before meals lancets (FreeStyle Lancets) As directed levothyroxine 125 mcg PO DAILY lisinopril 10 mg PO DAILY metformin ER 500 mg PO QPM multivitamin 1 tab PO DAILY rosuvastatin 5 mg PO 3XW 3 months Tobacco use date assessed: 04/02/25 Dental Screening Dental Screen Date: 04/02/25 Did you have a dental visit in the last 12 months?: No Did you have a dental problem in the last 6 months where you did not have access to dental care?: No Was dental information given to patient?: Patient declined HPI Annual PE HPI Details 44-year-old lady with past medical history significant for diabetes mellitus, hypertension, dyslipidemia and hypothyroidism, here today for her physical exam. She has been compliant with taking her metformin ER 500 mg 1 tablet at night with supper time, but admits to not really following any regular exercise, although she states that she has started a job that entails a lot of walking daily. She has been trying to follow recommended diet but has not been able to lose a significant amount of weight. Latest hemoglobin A1c is at 6.8%, with microalbuminuria present. She goes to [facility] for her routine eye exam and diabetes retinopathy screening. For her lipids she is taking rosuvastatin 5 mg taken 1 tablet 3 times a week with latest fasting lipids showing results within normal limits. Latest fasting labs also showed thyroid levels are within normal limits, currently taking levothyroxine 125 mcg daily for her hypothyroidism. Blood pressure stable and controlled on present treatment with lisinopril 10 mg daily. She is up-to-date with her screening mammogram done earlier this year with benign findings. She goes to [facility] for her routine pelvic exam and cervical cancer screening, with last Pap smear done in 2023 with normal findings. She already received her pneumonia vaccination and was given a flu vaccine on today's visit. [facility] Medical History (Updated 04/02/25 @ 22:41 by Temitope Zacarias MD) Dyslipidemia Diabetes mellitus with hyperglycemia Sinus tachycardia Vitamin D deficiency Obesity (BMI 30-39.9) Allergic rhinitis Hypertriglyceridemia Essential hypertension Acquired hypothyroidism Surgical History History of skin graft History of surgery Family History (Updated 04/02/25 @ 16:34 by Temitope Zacarias MD) Father Overactive thyroid gland Substance use disorder Mother Hypothyroidism IBS (irritable bowel syndrome) Maternal Grandfather CAD (coronary artery disease) Maternal Grandmother Breast cancer Maternal Aunt Breast cancer H/O Zan thyroiditis Sister No problems noted. Paternal Grandfather Substance use disorder Maternal Aunt Mental health disorder Maternal Aunt Cervical cancer Maternal Uncle Colon cancer, Onset Age: 65 Social History Housing: Apartment Alcohol intake: current Alcohol intake frequency: a few times a month Patient Tobacco Use Status: Former Tobacco user Years Smoked: 3 yrs e-Cigarette/Vaping Use: Never Used service: No Current occupational status: employed Cognitive needs: No Hearing needs: No Vision needs: Yes Female Reproductive History Menstrual Age of Menarche: 12 Questionnaire PHQ-9 Over the last 2 weeks, how often have you been bothered by any of the following problems? 1. Little interest or pleasure in doing things: not at all 2. Feeling down, depressed, or hopeless: not at all 3. Trouble falling or staying asleep, or sleeping too much: several days 4. Feeling tired or having little energy: several days 5. Poor appetite or overeating: several days 6. Feeling bad about yourself - or that you are a failure or have let yourself or your family down: not at all 7. Trouble concentrating on things, such as reading the newspaper or watching television: not at all 8. Moving or speaking so slowly that other people could have noticed. Or the opposite - being so fidgety or restless that you have been moving around a lot more than usual: not at all 9. Thoughts that you would be better off or of hurting yourself in some way: not at all Total score: 3 Depression Screening Interpretation: Negative Depression Screening Done: Yes Source: Developed by Drs. Scott Gee, Yanni Robles, Raphael Buckner and colleagues, with an educational emerson from [employer]. Thrive Questionnaire Date Thrive assessed: 08/13/24 I am a: Patient What is your living situation today?: I have a steady place to live Within the past 12 months, did the food you bought not last and you didn't have the money to get more?: Never true Within the past 12 months, did you worry whether your food would run out before you got money to buy more?: Never true Do you have trouble paying for medicines?: No Do you have trouble getting transportation to medical appointments?: No Do you have trouble paying your heating and electricity bill?: No Do you have trouble taking care of your child, family member or friend?: No Do you have trouble with day-to-day activities such as bathing, preparing meals, shopping, managing finances, etc.?: No Are you currently unemployed and looking for a job?: No Are you interested in more education?: No Please select the resources that you would like help with: None THRIVE Score: 0 AUDIT C Alcohol Use Questionnaire (AUDIT-C) 1. How often do you have a drink containing alcohol?: Monthly or less 2. How many drinks containing alcohol do you have on a typical day when you are drinking?: 1 or 2 3. How often do you have six or more drinks on one occasion?: Never Total Score: 1 EV-7 AMB Questionnaire EV-7 Date EV - 7 assessed: 08/13/24 Feeling nervous, anxious, or on edge: 0 = Not at all Not being able to stop or control worryin = Not at all Worrying too much about different things: 0 = Not at all Trouble relaxin = Not at all Being so restless that it is hard to sit still: 0 = Not at all Becoming easily annoyed or irritable: 0 = Not at all Feeling afraid as if something awful might happen: 0 = Not at all Total EV-7 score (0-4 normal; 5-9 mild; 10-14 moderate; 15-21 severe): 0 Source: Developed by Drs. Scott Gee, Yanni Robles, Raphael Buckner and colleagues, with an educational emerson from [employer]. Review of Systems Const Reports no additional complaints Eyes Details: Goes to [facility] Denies change in vision ENT Denies nasal congestion and Denies nasal discharge Card Denies chest pain, Denies lightheadedness, Denies palpitations and Denies dyspnea Resp Denies chest congestion, Denies cough, Denies dyspnea and Denies wheezing GI Denies abdominal pain, Denies hematochezia, Denies change in bowel habits and Denies heartburn Reports abnormal menses (Irregular cycle), Denies hematuria, Denies urinary frequency, Denies dysuria, Denies urinary urgency, Denies vaginal discharge and Denies vaginal pruritus Musc Reports no additional complaints Skin/Breast Denies breast pain, Denies breast mass, Denies lesions and Denies rash Neuro Reports no additional complaints Psych Reports no additional complaints Endo Denies polydipsia, Denies polyuria and Denies palpitations Efe/Lymph Reports no additional complaints Aller/Immun Denies seasonal rhinorrhea and Denies wheezing Physical exam (Primary Care) Vital Signs: Last Vital Signs Temp 98.0 F 04/02/25 15:55 Pulse 99 04/02/25 15:55 Resp 16 04/02/25 15:55 BP 126/90 H 04/02/25 15:55 Pulse Ox 99 04/02/25 15:55 Oxygen Delivery Method Room Air 04/02/25 15:55 BMI result Body Mass Index 40.4 Tobacco/Smoking Status: Tobacco use Status Tobacco use date assessed 04/02/25 04/02/25 15:58 Patient Tobacco Use Status Former Tobacco user 04/02/25 15:58 e-Cigarette/Vaping Use Never Used 04/02/25 15:58 PHQ-9: PHQ-9 Score PHQ-9: Total score 3 04/02/25 16:27 Depression Screening Interpretation: Negative Thrive Assessment: Date of Thrive Assessment Date Thrive assessed 08/13/24 04/02/25 15:58 Advance Care Planning discussion: Completed/Scanned Date of discussion: 04/02/25 Who was present: Patient Forms completed: Health Care Proxy Time spent: 16-45 minutes Actual minutes spent: 2 Const General: no acute distress and alert Nutritional Appearance: obese Orientation/consciousness: patient oriented x3 HENMT Ears: external ears normal General nose exam: Normal external nose present Face and sinus: Yes face symmetric Mouth: Normal oral and palatal mucosa present and moist mucous membranes Eyes General: appearance normal, both eyes and all related structures Neck Neck: Yes full ROM, Yes no lymphadenopathy and Yes supple Chest Breast/axilla palpation: normal palpation of the breasts Resp Effort & Inspection: normal respiratory effort and able to speak in complete sentences Auscultation: clear to auscultation bilaterally Cardio Rhythm: regular rhythm Heart sounds: S1 normal heart sound present and S2 normal heart sound present GI Palpation (GI): Soft to palpation, nontender and no masses Auscultation: normal bowel sounds 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 General: Yes deferred Back/Spine/Pelvis Back: No back tenderness Skin General skin exam: no rashes or lesions noted Neuro General: patient oriented x3, gait normal, tone normal, moves all extremities, Normal light touch and pain sensation and no focal motor deficits Cranial nerves: Yes CN's II-XII intact bilaterally Cognition (Neuro): normal cognition Extrem General: Yes full ROM, Yes no joint enlargement, Yes no clubbing, cyanosis or edema and Yes no calf tenderness Psych Appearance: grossly normal and well kempt Mental Status: mental status grossly normal Speech and movement: Normal speech and movement present Affect: normal affect Office Procedures Flu Questionnaire Does the patient have a severe egg allergy?: No Does the patient have severe life threatening allergies?: No Does the patient have a fever or illness today?: No Has the patient ever had Guillain-[place] Syndrome?: No Has the patient ever had any past reaction to a flu shot?: No Immunizations Fluarix [id number] (PF) 45 mcg (15 mcg x 3)/0.5 mL IM syringe Performing Provider: Temitope Zacarias MD Performing Location: [facility] Administered by: Camilla Guerrero CMA on 04/02/25 16:16 Dose Route Admin Location Dispensed Lot Number Expiration Date [facility] Elevator Constructor Helper 0.5 mL IM Left Deltoid 0.5 mL [id number] 10/22/25 [id number] VIS Given Date VIS Provided VIS Publication Date 04/02/25 Single Vaccine 24 Eligibility Eligibility Date Funding Source Not [facility] Eligible 04/02/25 Private Results Reviewed Results Reviewed: Laboratory Tests 11/21/24 03/16/25 08:39 09:55 Estimat Average Glucose 148 Hemoglobin A1c % 6.8 H Microalb/Creat Ratio 99.3 H Name: Carlie Petersen Age/Sex: 44/F : 1980 Unit#: [id number] Attend Dr: Temitope Zacarias MD Re03/16/25 Status: DEP REF Location: [facility] Disch: SPEC : [id number] FELI: 03/16/25 STATUS: COMP REQ : [id number] RECD: 03/16/25-[address]: Temitope Zacarias MD COMP: 03/16/25 ENTERED: 03/16/25-[address]: ORDERED: Met Prof Fast, AST, ALT, Lipid Panel, Free T4, TSH Test Result Flag Reference Sodium 139 135-145 mmol/L Potassium 3.9 3.3-5.1 mmol/L CL 106 96-108 mmol/L CO2 26 22-29 mmol/L Gap 11 L 12-20 BUN 12 9-16 mg/dL Creat 0.58 0.5-1.4 mg/dL eGFR > 60 Chronic Kidney Disease: Estimated GFR < 60 mL/min/1.73m2 Severe Kidney Disease: Estimated GFR < 15 mL/min/1.73m2 FBS 124 H 60-99 mg/dL A fasting glucose from 100-125 mg/dl is considered impaired (pre-diabetes). CA 8.9 8.4-10.2 mg/dL AST (GOT) 28 5-31 U/L ALT (GPT) 22 0-31 U/L Triglyceride 175 H <150 mg/dL Desirable Triglyceride: less than 150 mg/dL Borderline High Triglyceride 150-199 mg/dL High Triglyceride: 200-499 mg/dL Very High Triglyceride: greater than or equal to 5OO mg/dL Cholesterol 147 <200 mg/dL Desirable Cholesterol: less than 200 mg/dL Borderline High Cholesterol: 200-239 mg/dL High Cholesterol: greater than 239 mg/dL LDL Calculated 76 <100 mg/dL Desirable LDL: less than 100 mg/dL Near Optimal/Above Optimal LDL: 110-129 mg/dL Borderline High LDL: 130-159 mg/dL High LDL: 160-189 mg/dL Very High LDL: greater than or equal to 190 mg/dL HDL 36 L >40 mg/dL Desirable HDL: greater than 40 mg/dL Note: This HDL assay may give artificially low results in patients with liver disease. Free T4 1.16 0.71-1.85 ng/dL TSH 3rd Gen. 1.95 0.32-4.0 uIU/mL Coding Level of Care Code Est Pt Prev Care 40-64y(47035) Diagnoses Annual visit for general adult medical examination with abnormal findings Z00.01 Type 2 diabetes mellitus with hyperglycemia, without long-term current use of insulin E11.65 Diabetes mellitus halfway insulin use: without superintendent container terminal use Diabetes mellitus type: type 2 Essential hypertension I10 Obesity (BMI 30-39.9) E66.9 Dyslipidemia E78.5 Acquired hypothyroidism E03.9 Advance directive discussed with patient Z71.89 Additional Codes Vital Signs *Quality* - Advance Care Planning discussion: Completed/Scanned ([id number]) Vital Signs *Quality* - Time spent: 16-45 minutes ([id number]) Assessment & Plan Assessment & Plan (1) Annual visit for general adult medical examination with abnormal findings: Code(s): Z00.01 - Encounter for general adult medical examination with abnormal findings Plan: Results of latest fasting labs discussed with patient today. Continue with regular dental visit every 6 months and regular eye exams, sees [facility] annually. Take adequate calcium in diet and vitamin-D 3 at 2000 IU per cap once a day, in addition to weight-bearing exercises to help maintain good muscle tone and weight control. Instructed to do self-breast exam, and continue with yearly mammogram. Up-to-date with her cervical cancer screening, goes to [facility] for routine Pap and pelvic exam. Up-to-date with her pneumococcal vaccine, flu vaccine given today. Does not want to get a COVID booster (2) Diabetes mellitus with hyperglycemia: Code(s): E11.65 - Type 2 diabetes mellitus with hyperglycemia Category: Medical Qualifiers: Diabetes mellitus superintendent container terminal insulin use: without superintendent container terminal use Diabetes mellitus type: type 2 Qualified Code(s): E11.65 - Type 2 diabetes mellitus with hyperglycemia Plan: Latest hemoglobin A1c is at 6.8% still not at goal. Will continue on metformin ER 500 mg 1 tablet at night with supper time and added Mounjaro 2.5 mg injected subcutaneously once a week. Discussed with patient proper technique of administering medication and possible side effects that might occur when taking medication which may include abdominal bloating, abdominal cramping alteration in bowel habits, nausea. Advised to eat a bland diet when during the day that she is administering the medication, continue with adherence to recommended diet and continue with regular exercise. Goes to [facility] for her routine eye exam and retinopathy screening. Flu vaccine given today, already received her pneumonia vaccine on past visit. Schedule an appointment for follow-up in 3 months after repeat fasting labs done (3) Essential hypertension: Code(s): I10 - Essential (primary) hypertension Category: Medical Plan: Blood pressure at goal of less than 130/80. Continue taking lisinopril 10 mg daily.. Reinforced importance of following a low sodium diet, getting regular exercise, and lowering stress levels. (4) Obesity (BMI 30-39.9): Code(s): E66.9 - Obesity, unspecified Category: Medical Plan: Discussed need to increase activity and weight reduction. Recommended following a Mediterranean diet, which is a healthy diet that limit food high in fat, sugar, and calories. Eat slowly, pay attention to portion sizes, plan your meals ahead of time, start regular physical activity, at least 150 minutes of moderate intensity exercise, (5) Dyslipidemia: Code(s): E78.5 - Hyperlipidemia, unspecified Category: Medical Plan: Reviewed recent fasting lipid profile with patient with LDL cholesterol at goal but HDL cholesterol still low . Continue taking rosuvastatin 5 mg taken 1 tablet 3 times a week , in addition to adherence to low-cholesterol diet and regular exercise, at least 30 minutes 3 to 4 times a week. Advised patient to make healthy food choices, eat more fruits, vegetables, whole grains, wild caught fish and low-fat dairy. Limit amount of meat and fried or fatty food products, as well as processed foods and fast foods. Follow-up scheduled with repeat fasting lipid panel in 3 months. (6) Acquired hypothyroidism: Code(s): E03.9 - Hypothyroidism, unspecified Category: Medical Plan: Latest thyroid levels are within normal limits. Continued on levothyroxine 125 mcg daily (7) Advance directive discussed with patient: Code(s): Z71.89 - Other specified counseling Plan: Initiated the conversation about Advanced Directives. Advanced Directives help patients prepare for current and future decisions about their medical treatment and place of care. Discussed with patient that it is a process where a patients current condition and prognosis are reviewed, their wishes for information regarding their illness are elicited, and likely medical dilemmas are presented and options discussed. Healthcare proxy form completed today. The form can be amended as needed, reviewed yearly and make changes as needed Orders: Orders Influenza [id number] Immunization Today Z23 - Encounter for immunization Lipid Panel 3 Months E11.65 - Type 2 diabetes mellitus with hyperglycemia, E66.9 - Obesity, unspecified, E78.5 - Hyperlipidemia, unspecified, I10 - Essential (primary) hypertension Basic Metabolic Panel Fasting 3 Months E11.65 - Type 2 diabetes mellitus with hyperglycemia, E66.9 - Obesity, unspecified, E78.5 - Hyperlipidemia, unspecified, I10 - Essential (primary) hypertension Hemoglobin A1c 3 Months E11.65 - Type 2 diabetes mellitus with hyperglycemia, E66.9 - Obesity, unspecified, E78.5 - Hyperlipidemia, unspecified, I10 - Essential (primary) hypertension Alanine Aminotransferase 3 Months E11.65 - Type 2 diabetes mellitus with hyperglycemia, E66.9 - Obesity, unspecified, E78.5 - Hyperlipidemia, unspecified, I10 - Essential (primary) hypertension Aspartate Amino Transferase 3 Months E11.65 - Type 2 diabetes mellitus with hyperglycemia, E66.9 - Obesity, unspecified, E78.5 - Hyperlipidemia, unspecified, I10 - Essential (primary) hypertension Thyroid Stimulating Hormone 3 Months E11.65 - Type 2 diabetes mellitus with hyperglycemia, E66.9 - Obesity, unspecified, E78.5 - Hyperlipidemia, unspecified, I10 - Essential (primary) hypertension Free T4 (Free Thyroxine) 3 Months E11.65 - Type 2 diabetes mellitus with hyperglycemia, E66.9 - Obesity, unspecified, E78.5 - Hyperlipidemia, unspecified, I10 - Essential (primary) hypertension Medications: New Mounjaro (tirzepatide) for 4 weeks 2.5 mg (0.5 mL) subcut QWEEK 2 mL 4RF 1 month NS E11.65 - Type 2 diabetes mellitus with hyperglycemia, E66.9 - Obesity, unspecified, E78.5 - Hyperlipidemia, unspecified, I10 - Essential (primary) hypertension
== END 2025-04-02 16:59 | disposition home or self-care (01) ==
LOC: HO.HMCC 15:47
PROVIDERS: PCP Internal Medicine; Visit Provider Internal Medicine
DX: Z23 Encounter for immunization (principal)

== ENCOUNTER → 2025-04-02 15:46 | Outpatient (BNVA) | payer BC, SELFPAY | PROVIDERS: PCP Internal Medicine; Visit Provider Internal Medicine | DX: Z23 Encounter for immunization (principal); Z00.01 Encounter for general adult medical examination with abnormal findings; Z71.89 Other specified counseling; I10 Essential (primary) hypertension; E66.9 Obesity, unspecified; E03.9 Hypothyroidism, unspecified; E78.5 Hyperlipidemia, unspecified; E11.65 Type 2 diabetes mellitus with hyperglycemia; Z68.41 Body mass index [BMI] 40.0-44.9, adult | CPT/HCPCS: 90471; 90656; 96127 ==